=== PATIENT | female | born 1990 | race African-American/Black ===

== ENCOUNTER 2017-07-03 18:28 | Emergency (ER) | payer OTHER ==
--- NOTE | 2017-07-03 18:33 | PDOC ---
Rapid Medical Evaluation Time Seen by Provider: 07/03/17 18:32 Medical Evaluation: Allergies Allergy/AdvReac Type Severity Reaction Status Date / Time No Known Allergies Allergy Verified 11/30/12 14:13 07/03/17 18:32 c/o sore throat and ear pain , was taking ear drops but stopped them because she was feeling better. no PMHX no allergies
[2017-07-03 18:36] VITALS: BP 141/83; PULSE 91; TEMP 98; BMI 32.8
--- NOTE | 2017-07-03 18:52 | PDOC ---
History of Present Illness - General Chief Complaint: Ear Problem Stated Complaint: COLD SYMPTOMS Time Seen by Provider: 07/03/17 18:32 History Source: Patient Exam Limitations: No Limitations - History of Present Illness Initial Comments: 07/03/17 18:52 Best Contact: Pmhx:N/A Pshx: 2013: C section/ 2014: Cholecystectomy Allergies:NKDA LMP: 06.25.2017 26-year-old female presents to the emergency department complaining of sore throat/left ear pain 2 weeks. Patient states she was seen at [facility] 2 weeks ago on [facility] and prescribed Ciprodex. Patient states she used the Ciprodex 3 times but stopped because she felt too lazy to go to her car to get her medicine. Patient states if she does get any medication tonight, she cannot promise that she will take it as prescribed. Otherwise, patient denies fever, chills, headache, dizziness, lightheadedness, facial pains, nasal congestion, rhinorrhea, neck pain/stiffness, back pains, chest pain, shortness of breath, abdominal pains. Patient states her sore throat is described as 4/10 nonradiating soreness. Patient states she is able to eat and drink without any difficulties. Past History - Past Medical History Allergies/Adverse Reactions: Allergies Allergy/AdvReac Type Severity Reaction Status Date / Time No Known Allergies Allergy Verified 07/03/17 18:33 Home Medications: Ambulatory Orders Amoxicillin - [Amoxicillin 500mg Capsule -] 500 mg PO BID #20 capsule 07/03/17 Metformin HCl [Metformin HCl ER] 1,000 mg PO ASDIR 07/03/17 Asthma: Yes Cancer: No Cardiac Disorders: No COPD: No Diabetes: Yes HTN: No Seizures: No Thyroid Disease: No - Immunization History Immunization Up to Date: Yes - Suicide/Smoking/Psychosocial Hx Smoking History: Never smoked Have you smoked in the past 12 months: No Information on smoking cessation initiated: No Hx Alcohol Use: No Drug/Substance Use Hx: No Substance Use Type: None Hx Substance Use Treatment: No Review of Systems - Review of Systems Able to Perform ROS?: Yes Comments:: 07/03/17 19:04 CONSTITUTIONAL: Absent: fever, chills, diaphoresis, generalized weakness, malaise, loss of appetite HEENT: +throat pain, left earache Absent: rhinorrhea, nasal congestion, throat swelling, difficulty swallowing, mouth swelling, eye pain, visual Changes CARDIOVASCULAR: Absent: chest pain, loss of consciousness, palpitations, irregular heart rate, peripheral edema RESPIRATORY: Absent: cough, shortness of breath, dyspnea with exertion, orthopnea, wheezing, stridor, hemoptysis GASTROINTESTINAL: Absent: abdominal pain, abdominal distension, nausea, vomiting, diarrhea, constipation, melena, hematochezia GENITOURINARY: Absent: dysuria, frequency, urgency, hesitancy, hematuria, flank pain, genital pain MUSCULOSKELETAL: Absent: myalgia, arthralgia, joint swelling SKIN: Absent: rash, itching, pallor Is the patient limited Malian proficient: No *Physical Exam - Vital Signs Last Vital Signs Temp Pulse Resp BP Pulse Ox 98.0 F 91 H 18 141/83 98 07/03/17 18:34 07/03/17 18:34 07/03/17 18:34 07/03/17 18:34 07/03/17 18:34 - Physical Exam Comments: 07/03/17 19:05 GENERAL: Well developed, well nourished. Awake and alert. No acute distress. HEENT: +tonsilar +erythematous/exudates Normocephalic, atraumatic. PERRLA, EOMI. No conjunctival pallor. Sclera are non- icteric. Moist mucous membranes. NECK: Supple. Full ROM. No JVD. Carotid pulses 2+ and symmetric, without bruits. No thyromegaly. No lymphadenopathy. CARDIOVASCULAR: Regular rate and rhythm. No murmurs, rubs, or gallops. Distal pulses are 2+ and symmetric. PULMONARY: No evidence of respiratory distress. Lungs clear to auscultation bilaterally. No wheezing, rales or rhonchi. ABDOMINAL: Soft. Non-tender. Non-distended. No rebound or guarding. No organomegaly. Normoactive bowel sounds. MUSCULOSKELETAL Normal range of motion at all joints. No bony deformities or tenderness. No CVA tenderness. EXTREMITIES: No cyanosis. No clubbing. No edema. No calf tenderness. SKIN: Warm and dry. Normal capillary refill. No rashes. No jaundice. Medical Decision Making - Medical Decision Making 07/03/17 19:52 26-year-old female complaining of sore throat and earache. Positive strep test. We'll treat with amoxicillin. *DC/Admit/Observation/Transfer Diagnosis at time of Disposition: Strep pharyngitis - Discharge Dispostion Disposition: HOME Condition at time of disposition: Stable Admit: No - Prescriptions Prescriptions: Amoxicillin - [Amoxicillin 500mg Capsule -] 500 mg PO BID #20 capsule - Referrals Referrals: Evelyn Newman [Primary Care Provider] - - Patient Instructions Printed Discharge Instructions: DI for Strep Throat Additional Instructions: Take Tylenol alternating with Motrin for pain or fever Increase fluids Follow up with your physician within 48 hours Return to the emergency department for severe/persistent or worsening symptoms - Post Discharge Activity
== END 2017-07-03 19:53 | disposition home or self-care (01) ==
LOC: JERFT 18:28
DX: J02.0 Streptococcal pharyngitis (principal); B95.0 Streptococcus, group A, as the cause of diseases classified elsewhere
CPT/HCPCS: 87070; 87077; 87430; 99281-25

== ENCOUNTER 2017-07-16 22:09 | Emergency (ER) | payer OTHER ==
[2017-07-16 22:24] VITALS: BP 123/93; PULSE 78; TEMP 98.1; BMI 32.8
[2017-07-17] MEDS ORDERED: KETOROLAC TROMETHAMINE 60 MG/2 ML VIAL IM ONE (00:49)
[2017-07-17] MEDS ORDERED: CYCLOBENZAPRINE HCL 10 MG TABLET (FP) PO ONE (00:49)
[2017-07-17] MEDS ORDERED: CYCLOBENZAPRINE HCL 10 MG TABLET (FP) ONE (01:21)
[2017-07-17] MEDS ORDERED: KETOROLAC TROMETHAMINE 60 MG/2 ML VIAL ONE (01:21)
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
== END 2017-07-17 04:58 | disposition home or self-care (01) ==
LOC: JER 22:09
PROC: 3E0233Z Introduction of Anti-inflammatory into Muscle, Percutaneous Approach (ICD-10-PCS; principal; 2017-07-16)
DX: S62.394A Other fracture of fourth metacarpal bone, right hand, initial encounter for closed fracture (principal); S16.1XXA Strain of muscle, fascia and tendon at neck level, initial encounter; S39.012A Strain of muscle, fascia and tendon of lower back, initial encounter; V43.52XA Car driver injured in collision with other type car in traffic accident, initial encounter; Y92.414 Local residential or business street as the place of occurrence of the external cause; Y93.89 Activity, other specified; Y99.8 Other external cause status
CPT/HCPCS: 72050-TC-FY; 72100-TC-FY; 73130-TC-RT-FY; 84703; 99281-25

== ENCOUNTER 2017-09-03 15:35 | Emergency (ER) | payer OTHER | END 2017-09-03 17:20 | disposition home or self-care (01) | LOC: JERFT 15:35 | CPT/HCPCS: 87070; 87430; 99281-25 ==

== ENCOUNTER 2018-01-16 18:40 | Emergency (ER) | payer OTHER ==
[2018-01-16 19:24] VITALS: BP 117/68; PULSE 82; TEMP 98.6; BMI 37.2
--- NOTE | 2018-01-16 19:26 | PDOC ---
Rapid Medical Evaluation Chief Complaint: Sore Throat Time Seen by Provider: 01/16/18 19:22 Medical Evaluation: Allergies Allergy/AdvReac Type Severity Reaction Status Date / Time amoxicillin Allergy Verified 09/03/17 15:49 01/16/18 19:22 27 year old female with sore throat x1 days. son diagnosed with strep throat yesterday in the ED PE: patient alert ox3 A: sore throat P: rapid strep patient to the ER for further management of care. 01/16/18 19:24 Discharge Disposition - Diagnosis Pharyngitis Qualifiers: Pharyngitis/tonsillitis etiology: unspecified etiology Qualified Code(s): J02.9 - Acute pharyngitis, unspecified - Referrals Referrals: Evelyn Newman [Primary Care Provider] - - Patient Instructions - Post Discharge Activity
--- NOTE | 2018-01-16 19:37 | PDOC ---
History of Present Illness - General Chief Complaint: Sore Throat Stated Complaint: Sore Throat Time Seen by Provider: 01/16/18 19:22 History Source: Patient Exam Limitations: Clinical Condition - History of Present Illness Initial Comments: 01/16/18 19:32 Patient with history of diabetes on meds present with complain of sore throat since yesterday night. Patient reported pain to swallow. Patient reports sudden test positive strep throat. Denies any other symptoms Timing/Duration: 24 hours Past History - Past Medical History Allergies/Adverse Reactions: Allergies Allergy/AdvReac Type Severity Reaction Status Date / Time amoxicillin Allergy Verified 01/16/18 19:24 Home Medications: Ambulatory Orders Metformin HCl [Metformin HCl ER] 1,000 mg PO ASDIR 07/03/17 Azithromycin [Zithromax 250mg Tablets -] 250 mg PO UTDICT #6 tab 01/16/18 Asthma: Yes Cancer: No Cardiac Disorders: No COPD: No Diabetes: Yes HTN: No Seizures: No Thyroid Disease: No - Surgical History Cholecystectomy: Yes - Immunization History Immunization Up to Date: Yes - Suicide/Smoking/Psychosocial Hx Smoking History: Never smoked Have you smoked in the past 12 months: No If you are a former smoker, when did you quit?: 1.5 years Information on smoking cessation initiated: No Hx Alcohol Use: No Drug/Substance Use Hx: No Substance Use Type: None Hx Substance Use Treatment: No Review of Systems - Review of Systems Able to Perform ROS?: Yes Is the patient limited [place]ese proficient: No Constitutional: No: Chills, Fever HEENTM: Yes: Throat Pain, Difficulty Swallowing (pain with swallow). No: Eye Pain, Blurred Vision, Tearing, Recent change in vision, Double Vision, Cataracts , Ear Pain, Ocular Prothesis, Ear Discharge, Nose Pain, Nose Congestion, Tinnitus, Nose Bleeding, Hearing Loss, Throat Swelling, Mouth Pain, Dental Problems, Mouth Swelling, Other Respiratory: No: Cough, Orthopnea, Shortness of Breath, SOB with Exertion, SOB at Rest, Stridor, Wheezing, Productive cough, Hemoptysis, Other Cardiac (ROS): No: Chest Pain, Edema, Irregular Heart Rate, Lightheadedness, Palpitations, Syncope, Chest Tightness, Other ABD/GI: No: Abdominal Distended, Abd. Pain w/ defecation, Blood Streaked Bowels , Constipated, Diarrhea, Difficulty Swallowing, Nausea, Poor Appetite, Poor Fluid Intake, Rectal Bleeding, Vomiting, Indigestion, Abdominal cramping, Tarry Stools, Other All Other Systems: Reviewed and Negative *Physical Exam - Vital Signs Last Vital Signs Temp Pulse Resp BP Pulse Ox 98.6 F 82 16 117/68 100 01/16/18 19:22 01/16/18 19:22 01/16/18 19:22 01/16/18 19:22 01/16/18 19:22 - Physical Exam Comments: 01/16/18 19:34 GENERAL: Well developed, well nourished. Awake and alert. No acute distress. HEENT: Mild pharyngeal erythema. Uvula midline. Normocephalic, atraumatic. PERRLA, EOMI. No conjunctival pallor. Sclera are non-icteric. Moist mucous membranes. NECK: Supple. Full ROM. CARDIOVASCULAR: Regular rate and rhythm. No murmurs, rubs, or gallops. Distal pulses are 2+ and symmetric. PULMONARY: No evidence of respiratory distress. Lungs clear to auscultation bilaterally. No wheezing, rales or rhonchi. ABDOMINAL: Soft. Non-tender. Non-distended. No rebound or guarding. No organomegaly. Normoactive bowel sounds. MUSCULOSKELETAL Normal range of motion at all joints. EXTREMITIES: No cyanosis. No clubbing. No edema. No calf tenderness. SKIN: Warm and dry. Normal capillary refill. No rashes. No jaundice. NEUROLOGICAL: Alert, awake, appropriate. Gait is normal without ataxia. PSYCHIATRIC: Cooperative. Good eye contact. Appropriate mood General Appearance: Yes: Nourished, Appropriately Dressed. No: Apparent Distress Medical Decision Making - Medical Decision Making 01/16/18 19:35 Patient with history of diabetes on meds present with complain of sore throat since yesterday which child testing positive for strep throat yesterday. Patient denies fever or any other symptoms. Clinical exams significant for mild pharyngeal erythema. Rapid strep and throat culture ordered. Patient will be treated on antibiotics given child with positive strep. 01/16/18 19:54 rapid strep negative *DC/Admit/Observation/Transfer Diagnosis at time of Disposition: Pharyngitis Qualifiers: Pharyngitis/tonsillitis etiology: unspecified etiology Qualified Code(s): J02.9 - Acute pharyngitis, unspecified - Discharge Dispostion Disposition: HOME Condition at time of disposition: Stable Decision to Admit order: No - Prescriptions Prescriptions: Azithromycin [Zithromax 250mg Tablets -] 250 mg PO UTDICT #6 tab - Referrals Referrals: Evelyn Newman [Primary Care Provider] - Elijah Marquez MD [Staff Physician] - - Patient Instructions Printed Discharge Instructions: Strep Throat Additional Instructions: Take medication as prescribed. Increase fluid intake. Follow-up with ENT if symptoms persist for more than 5 days - Post Discharge Activity
[2018-01-16] MEDS ORDERED: ACETAMINOPHEN 325 MG TABLET (FP) PO ONE (19:39)
[2018-01-16] MEDS ORDERED: ACETAMINOPHEN 325 MG TABLET (FP) ONE (19:41)
== END 2018-01-16 19:58 | disposition home or self-care (01) ==
LOC: JERFT 18:40
DX: J02.9 Acute pharyngitis, unspecified (principal)
CPT/HCPCS: 87070; 87430; 99281-25

== ENCOUNTER 2018-08-16 15:54 | Emergency (ER) | payer OTHER ==
[2018-08-16 16:16] VITALS: BP 134/77; PULSE 99; TEMP 98.6; BMI 37.5
--- NOTE | 2018-08-16 16:16 | PDOC ---
Rapid Medical Evaluation Chief Complaint: Headache Time Seen by Provider: 08/16/18 16:14 Medical Evaluation: Allergies Allergy/AdvReac Type Severity Reaction Status Date / Time amoxicillin Allergy Verified 01/16/18 19:24 08/16/18 16:14 I have performed a brief in-person evaluation of this patient. The patient presents with a chief complaint of: 15weeks with headache took Tylenol with no improvement. Denies blurry vision, change in vision, dizziness, N/V. Pertinent physical exam findings: A&O x 3 in NAD. ambulating with normal gait I have ordered the following: nothing The patient will proceed to the ED for further evaluation. Discharge Disposition - Diagnosis Headache Qualifiers: Headache type: unspecified Headache chronicity pattern: acute headache Intractability: not intractable Qualified Code(s): R51 - Headache - Discharge Dispostion Condition at time of disposition: Stable - Referrals - Patient Instructions - Post Discharge Activity
[2018-08-16 16:51] LABS: EPI CELLS 6.7 /HPF (0-5/HPF); PH,URINE 8.5 (5.0-8.0); URINE APPEARANCE CLOUDY; URINE BACTERIA 226.3 /hpf (NEGATIVE); URINE BILIRUBIN NEGATIVE (NEGATIVE); URINE CASTS 0 /hpf (0-8); URINE COLOR YELLOW; URINE GLUCOSE (UA) 1+ (NEGATIVE); URINE KETONE NEGATIVE (NEGATIVE); URINE LEUK ESTERASE 1+ (NEGATIVE); URINE NITRITE NEGATIVE (NEGATIVE); URINE PROTEIN NEGATIVE (NEGATIVE); URINE RBC 6 /hpf (0-4); URINE UROBILINOGEN 0.2 mg/dL (0.2-1.0); URINE WBC 3 /hpf (0-5)
[2018-08-16] MEDS ORDERED: SODIUM CHLORIDE 1,000 ML IV STA (17:30)
--- NOTE | 2018-08-16 17:30 | PDOC ---
History of Present Illness - General Chief Complaint: Headache Stated Complaint: HEADACHE 15WKS PRG Time Seen by Provider: 08/16/18 16:14 History Source: Patient Exam Limitations: No Limitations Past History - Travel Traveled outside of the country in the last 30 days: No Close contact w/someone who was outside of country & ill: No - Past Medical History Allergies/Adverse Reactions: Allergies Allergy/AdvReac Type Severity Reaction Status Date / Time amoxicillin Allergy Verified 01/16/18 19:24 Home Medications: Ambulatory Orders metFORMIN HCL [Metformin HCl ER] 1,000 mg PO ASDIR 07/03/17 Azithromycin [Zithromax 250mg Tablets -] 250 mg PO UTDICT #6 tab 01/16/18 Acetaminophen [Tylenol -] 650 mg PO Q4H #30 tablet 08/16/18 Metoclopramide HCl [Reglan -] 10 mg PO TID #21 tablet 08/16/18 Asthma: Yes Cancer: No Cardiac Disorders: No COPD: No Diabetes: Yes HTN: No Seizures: No Thyroid Disease: No - Surgical History Cholecystectomy: Yes - Immunization History Immunization Up to Date: Yes - Suicide/Smoking/Psychosocial Hx Smoking History: Never smoked Have you smoked in the past 12 months: No If you are a former smoker, when did you quit?: 1.5 years Information on smoking cessation initiated: No Hx Alcohol Use: No Drug/Substance Use Hx: No Substance Use Type: None Hx Substance Use Treatment: No Review of Systems - Review of Systems Able to Perform ROS?: Yes Comments:: 08/16/18 18:13 CONSTITUTIONAL: Absent: fever, chills, diaphoresis, generalized weakness, malaise, loss of appetite HEENT: Absent: rhinorrhea, nasal congestion, throat pain, throat swelling, difficulty swallowing, mouth swelling, ear pain, eye pain, visual Changes GASTROINTESTINAL: Absent: abdominal pain, abdominal distension, nausea, vomiting, diarrhea, constipation, melena, hematochezia GENITOURINARY: Absent: dysuria, frequency, urgency, hesitancy, hematuria, flank pain, genital pain MUSCULOSKELETAL: Absent: myalgia, arthralgia, joint swelling SKIN: Absent: rash, itching, pallor NEUROLOGIC: Present: headache Absent: focal weakness or paresthesias, dizziness, unsteady gait, seizure, mental status changes, bladder or bowel incontinence PSYCHIATRIC: Absent: anxiety, depression, suicidal or homicidal ideation, hallucinations. Is the patient limited Faroese proficient: No *Physical Exam - Vital Signs Last Vital Signs Temp Pulse Resp BP Pulse Ox 98.6 F 99 H 18 134/77 99 08/16/18 16:13 08/16/18 16:13 08/16/18 16:13 08/16/18 16:13 08/16/18 16:13 - Physical Exam Comments: 08/16/18 18:14 GENERAL: Well developed, well nourished. Awake and alert. No acute distress. HEENT: Normocephalic, atraumatic. PERRLA, EOMI. No conjunctival pallor. Sclera are non- icteric. Moist mucous membranes. Oropharynx is clear. NECK: Supple. Full ROM. No JVD. Carotid pulses 2+ and symmetric, without bruits. No thyromegaly. No lymphadenopathy. EXTREMITIES: No cyanosis. No clubbing. No edema. No calf tenderness. SKIN: Warm and dry. Normal capillary refill. No rashes. No jaundice. NEUROLOGICAL: Alert, awake, appropriate. Cranial nerves 2-12 intact. No deficits to light touch and temperature in face, upper extremities and lower extremities. No motor deficits in the in face, upper extremities and lower extremities. Normoreflexic in the upper and lower extremities. Normal speech. Toes are down- going bilaterally. Gait is normal without ataxia. PSYCHIATRIC: Cooperative. Good eye contact. Appropriate mood and affect. ED Treatment Course - ADDITIONAL ORDERS Additional order review: Laboratory Results 08/16/18 16:35 Urine Color Yellow Urine Appearance Cloudy Urine pH 8.5 H D Ur Specific M[place] 1.016 Urine Protein Negative Urine Glucose (UA) 1+ H Urine Ketones Negative Urine Blood Negative Urine Nitrite Negative Urine Bilirubin Negative Urine Urobilinogen 0.2 Ur Leukocyte Esterase 1+ H Urine WBC (Auto) 3 Urine RBC (Auto) 6 Urine Casts (Auto) 0 U Epithel Cells (Auto) 6.7 Urine Bacteria (Auto) 226.3 Medical Decision Making - Medical Decision Making 08/16/18 18:15 HPI: The patient is a 27-year-old female currently 15 weeks , who presents to the ER for headache for one week. Patient states she been taking Tylenol home with some relief of her symptoms. She states that the headache is all over and got worse gradually. Denies fevers, chills, neck pain, lightheadedness, dizziness, fall, changes in gait, and vaginal bleeding. A/P: Headache Patient is neurologically intact with no focal deficits. Given patient has tried Tylenol we'll add Reglan, and Benadryl. Last dose of Tylenol was at 10 AM per patient. We will also give IV Tylenol Reevaluate 08/16/18 19:15 Pt reports headache is improved after reglan and benadryl. No protienuria, no edema DC home with supportive therapy Pt to f/u with OB I discussed the physical exam findings, ancillary test results and final diagnoses with the patient. I answered all of the patient's questions. The patient was satisfied with the care received and felt comfortable with the discharge plan and treatment plan. The Patient agrees to follow up with the primary care physician/specialist within 24-72 hours. Return precautions were given. *DC/Admit/Observation/Transfer Diagnosis at time of Disposition: Headache Qualifiers: Headache type: unspecified Headache chronicity pattern: acute headache Intractability: not intractable Qualified Code(s): R51 - Headache - Discharge Dispostion Condition at time of disposition: Stable - Referrals Referrals: Abdulkadir Guerra MD [Staff Physician] - - Patient Instructions Printed Discharge Instructions: DI for Headache Additional Instructions: You were evaluated for your headache Take the Benadryl and Tylenol as directed for the headache Follow up with your ANTHROPOLOGIST PHYSICAL this week Drink plenty of fluids Return to the ED for any worsening headache, dizziness, swelling of the feet, or if you have any changes in your symptoms Te evaluaron por tu dolor de sánchez [place] el Benadryl y el Tylenol segn las indicaciones para el dolor de sánchez. Garfield un seguimiento con rader obstetra / gineclogo esta semana. Beber mucho lquido Regrese a la cynthia de emergencias por cualquier dolor de sánchez, mareo, hinchazn de los pies o si tiene algn cambio en mendy sntomas. - Post Discharge Activity Forms/Work/School Notes: Back to Work
[2018-08-16] MEDS ORDERED: METOCLOPRAMIDE HCL INJECTION 10 MG/2 ML VIAL IVPB ONE (17:31)
[2018-08-16] MEDS ORDERED: ACETAMINOPHEN 1000 MG/100 ML VIAL (NON FORMULARY) IVPB ONE (17:31)
[2018-08-16] MEDS ORDERED: METOCLOPRAMIDE HCL INJECTION 10 MG/2 ML VIAL ONE (17:35)
[2018-08-16] MEDS ORDERED: ACETAMINOPHEN INJECTION 100 ML IVPB ONE (17:35)
== END 2018-08-16 19:41 | disposition home or self-care (01) ==
LOC: JERFT 15:54
PROC: 3E0337Z Introduction of Electrolytic and Water Balance Substance into Peripheral Vein, Percutaneous Approach (ICD-10-PCS; principal; 2018-08-16)
PROC: 3E033NZ Introduction of Analgesics, Hypnotics, Sedatives into Peripheral Vein, Percutaneous Approach (ICD-10-PCS; 2018-08-16)
PROC: 3E033GC Introduction of Other Therapeutic Substance into Peripheral Vein, Percutaneous Approach (ICD-10-PCS; 2018-08-16)
PROC: 3E033GC Introduction of Other Therapeutic Substance into Peripheral Vein, Percutaneous Approach (ICD-10-PCS; 2018-08-16)
DX: O26.892 Other specified pregnancy related conditions, second trimester (principal); R51 Headache; O24.912 Unspecified diabetes mellitus in pregnancy, second trimester; Z3A.15 15 weeks gestation of pregnancy; Z79.84 Long term (current) use of oral hypoglycemic drugs
CPT/HCPCS: 81003; 87086; 99281-25; J0131; J7030

== ENCOUNTER 2018-12-21 03:47 | Emergency (ER) | payer OTHER ==
[2018-12-21 03:57] VITALS: BMI 41.4
[2018-12-21] MEDS ORDERED: LIDOCAINE VISCOUS 2% ORAL/TOP 20 ML UNIT-DOSE CUP MM ONE (04:29)
[2018-12-21] MEDS ORDERED: MAG HYDROX/AL HYDROX/SIMETH 30 ML UNIT-DOSE CUP PO ONE (04:29)
[2018-12-21] MEDS ORDERED: RANITIDINE HCL 150 MG TABLET (FP) PO ONE (04:29)
[2018-12-21] MEDS ORDERED: LIDOCAINE VISCOUS 2% ORAL/TOP 20 ML UNIT-DOSE CUP ONE (04:43)
[2018-12-21] MEDS ORDERED: RANITIDINE HCL 150 MG TABLET (FP) ONE (04:44)
[2018-12-21] MEDS ORDERED: MAG HYDROX/AL HYDROX/SIMETH 30 ML UNIT-DOSE CUP ONE (04:44)
--- NOTE | 2018-12-21 04:56 | PDOC ---
History of Present Illness - General Chief Complaint: Chest Pain Stated Complaint: CHEST PAIN,33 WEEKS ,ABDOMINAL PAIN Time Seen by Provider: 12/21/18 04:06 - History of Present Illness Initial Comments: 12/21/18 04:58 28y/o F 33 weeks ,hx of asthma,cholecystectomy and gestational diabetes, presents to the ED with 1 week of epigastric pain. Pt. presents to ED because pain now radiates to chest x1 day. She describes the pain as sharp intermittent pain which last approx 30 minutes each episode x5 (approx) a day. Pain feels similiar to episodes of acid reflux she has experienced in the past. Pain is exacerbated by lying down and relieved with sitting up. She endorses nausea with no vomiting. She has been able to eat and stay hydrated. She denies any fevers, chills,diarrhea, bloody stools, dysuria, hematuria, vaginal bleeding previous hx of clots, recent travel, unilateral leg swelling or hx of cancer. 12/21/18 05:02 12/21/18 05:03 Past History - Past Medical History Allergies/Adverse Reactions: Allergies Allergy/AdvReac Type Severity Reaction Status Date / Time amoxicillin Allergy Intermediate Rash Verified 12/21/18 03:55 Home Medications: Ambulatory Orders Albuterol Sulfate Inhaler - [Ventolin Hfa Inhaler -] 1 - 2 inh PO Q4H PRN Vitamins (Sjr) - 1 tab PO DAILY 12/18/18 Famotidine [Pepcid] 20 mg PO BID 30 Days #60 tablet 12/21/18 Asthma: Yes Cancer: No Cardiac Disorders: No COPD: No Diabetes: Yes HTN: No Seizures: No Thyroid Disease: No - Surgical History Cholecystectomy: Yes - Immunization History Immunization Up to Date: Yes - Suicide/Smoking/Psychosocial Hx Smoking History: Never smoked Have you smoked in the past 12 months: No If you are a former smoker, when did you quit?: 1.5 years Information on smoking cessation initiated: No Hx Alcohol Use: No Drug/Substance Use Hx: No Substance Use Type: None Hx Substance Use Treatment: No Review of Systems - Review of Systems Constitutional: No: Fever, Weakness HEENTM: No: Eye Pain, Blurred Vision Respiratory: No: Cough, Shortness of Breath Cardiac (ROS): Yes: Symptoms Reported ABD/GI: Yes: Symptoms Reported : No: Burning, Dysuria, Discharge Musculoskeletal: Yes: Back Pain Integumentary: No: Pallor, Rash Neurological: No: Headache *Physical Exam - Vital Signs Last Vital Signs Temp Pulse Resp BP Pulse Ox 98.6 F 86 18 111/76 99 12/21/18 03:55 12/21/18 03:55 12/21/18 03:55 12/21/18 03:55 12/21/18 03:55 - Physical Exam General Appearance: Yes: Nourished, Appropriately Dressed. No: Apparent Distress HEENT: positive: Normal Voice. negative: Scleral Icterus (R), Scleral Icterus ( L) Neck: positive: Trachea midline, Supple. negative: Tender Respiratory/Chest: positive: Lungs Clear, Normal Breath Sounds. negative: Chest Tender, Respiratory Distress, Accessory Muscle Use, Labored Respiration, Wheezing Cardiovascular: positive: Regular Rhythm, Regular Rate, S1, S2. negative: JVD Vascular Pulses: Dorsalis-Pedis (R): 2+, Doralis-Pedis (L): 2+ Gastrointestinal/Abdominal: positive: Normal Bowel Sounds, Other (gravid uterus. epigstric tenderness no guarding ) Musculoskeletal: positive: Normal Inspection. negative: CVA Tenderness Extremity: positive: Normal Capillary Refill, Normal Inspection, Normal Range of Motion Integumentary: positive: Normal Color, Dry, Warm. negative: Diaphoresis Neurologic: positive: Fully Oriented, Alert, Normal Mood/Affect, Normal Response Medical Decision Making - Medical Decision Making 12/21/18 04:57 28y/o F 33 weeks ,hx of asthma,cholecystectomy and gestational diabetes, presents to the ED with 1 week of epigastric pain. EKG : normal sinus rhythm, voltage criteria for left ventricular hypertrophy no st elevations was at the hospital 3 days ago labs done then cbc, coags cmp, urine . no findings suggestive of other abdominal pathology - only PE risk factor at this time. -No PE risk factors (malignancy. long distance travel, prior clot, unilateral leg swelling Meds: viscous lidocaine (20ml) Maalox 30ml PO Ranitidine 150mg po once Reassess, if improved discharge with pepcid description 12/21/18 05:03 12/21/18 05:13 *DC/Admit/Observation/Transfer Diagnosis at time of Disposition: Acid reflux - Prescriptions Prescriptions: Famotidine [Pepcid] 20 mg PO BID 30 Days #60 tablet - Referrals - Patient Instructions Printed Discharge Instructions: Heartburn -- Overview Additional Instructions: You were seen in the ER for abdominal pain and accompanying chest pain. You were given medications for acid reflux Avoid foods and drinks that make your symptoms worse, such as: Caffeine or alcoholic drinks. Chocolate. Peppermint or mint flavorings. Garlic and onions. Spicy foods. [place] fruits, such as oranges, bennie, or limes. Tomato-based foods such as sauce, chili, salsa, and pizza. Fried and fatty foods. Avoid lying down for the 3 hours prior to your bedtime or prior to taking a nap. Eat small, frequent meals instead of large meals. Wear loose-fitting clothing. Do not wear anything tight around your waist that causes pressure on your stomach. Raise the head of your bed 6 to 8 inches with wood blocks to help you sleep. Extra pillows will not help. Only take [id number] or prescription medicines for pain, discomfort, or fever as directed by your caregiver. Do not take aspirin, ibuprofen, or other nonsteroidal anti-inflammatory drugs (NSAIDs) . SEEK IMMEDIATE MEDICAL CARE IF: You have pain in your arms, neck, jaw, teeth, or back. Your pain increases or changes in intensity or duration. You develop nausea, vomiting, or sweating (diaphoresis). You develop shortness of breath, or you faint. Your vomit is green, yellow, black, or looks like coffee grounds or blood. Your stool is red, bloody, or black. These symptoms could be signs of other problems, such as heart disease, gastric bleeding, or esophageal bleeding. Follow up with your primary care provider and your slab lifting engineer. - Post Discharge Activity
--- NOTE | 2018-12-21 05:34 | PDOC ---
Attending Attestation - Resident Resident Name: Jeff Contreras - ED Attending Attestation I have performed the following: I have examined & evaluated the patient, The case was reviewed & discussed with the resident, I agree w/resident's findings & plan, Exceptions are as noted - HPI HPI: 12/21/18 05:50 28F , 33wk preg, pmh asthma, gestational DM, s/p marc here with 1 week of burning epigastric px radiating up towards chest. A/w nausea, no vomiting. Tolerating po w/o issue, normal appetite. No other complaints. - Physicial Exam PE: 12/21/18 05:52 Agree with exam as documented by resident - Medical Decision Making 12/21/18 05:52 consider GERD, acs, pe unlikely Normotensive symptomatic tx re-eval symptoms improved, will dc to L&D for monitoring
[2018-12-21 06:39] VITALS: BP 136/75; PULSE 91; TEMP 98.1
--- NOTE | 2018-12-21 11:36 | EKG ---
Test Reason : Blood Pressure : / mmHG Vent. Rate : 080 BPM Atrial Rate : 080 BPM P-R Int : 178 ms QRS Dur : 084 ms QT Int : 414 ms P-R-T Axes : 058 -17 019 degrees QTc Int : 477 ms NORMAL SINUS RHYTHM VOLTAGE CRITERIA FOR LEFT VENTRICULAR HYPERTROPHY WHEN COMPARED WITH ECG OF 05-DEC-2012 09:03, NO SIGNIFICANT CHANGE WAS FOUND Confirmed by ANAIS MAN MD ([id number]) on 12/21/2018 11:35:43 AM Referred By: Confirmed By:ANAIS MAN MD
== END 2018-12-21 10:10 | disposition home or self-care (01) ==
LOC: JER 03:47
DX: O26.893 Other specified pregnancy related conditions, third trimester (principal); K21.9 Gastro-esophageal reflux disease without esophagitis; Z3A.33 33 weeks gestation of pregnancy; J45.909 Unspecified asthma, uncomplicated; O24.419 Gestational diabetes mellitus in pregnancy, unspecified control
CPT/HCPCS: 82962; 93005; 93010; 99283-25

== ENCOUNTER 2019-01-23 06:05 | Inpatient (IN) | payer OTHER ==
[2019-01-23] MEDS ORDERED: ELECTROLYTE-148 SOLN 500 ML IV ONE (06:20)
[2019-01-23] MEDS ORDERED: ELECTROLYTE-148 SOLN 1,000 ML IV SCH ×2 (06:50→07:30)
[2019-01-23 06:54] VITALS: BMI 40.5
[2019-01-23] MEDS ORDERED: PHENYLEPHRINE HCL 10 MG/1 ML SINGLE DOSE VIAL ONE (07:25)
[2019-01-23] MEDS ORDERED: morphine SULFATE/PF 0.5 MG/ML (2cc Syringe - QUVA) ONE (07:28)
[2019-01-23] MEDS ORDERED: CITRIC ACID/SODIUM CITRATE 30 ML UNIT-DOSE CUP PO ONE (07:30)
[2019-01-23] MEDS ORDERED: ELECTROLYTE-148 SOLN 1,000 ML IV ONE (07:30)
--- NOTE | 2019-01-23 08:20 | HP ---
Past Medical History - Primary Care Physician PCP:: Sandra Ugrate - Admission Chief Complaint: 28 yrs , 38 weeks, previous c/section, with known IDDM type 2 diabetes , requests repeat c/section History of Present Illness: pnc at 1, [facility] transfer from [facility] at 26 weeks gestation wt gain 30 lbs panel: O pos , , Hbsag neg, Hep C nr, Hiv nr, Rpr nr,Rubella immune, Varicella immune , gc/ct neg ,sickle neg Quantiferon - indeterminate , , Chest Xray 12/19/2018 compare with 2013 xray, prominent markings, may be due to base line urine protein/cr ratio 0.18 base line 24 hr urine Protein & Cr clearance (243)was wnl urine protein /cr ration 01/08/19 36 weeks cultures gbs neg /gc/ct neg . Hiv neg . h/o BV pos rx with Metrogel gel x5 days , h/h 12.9/33.7, plt 185,HgbA1c 7.0 01/22/19 urine 4+proteinuria random urine protein/cr ratio : 1.74 pt had anatomy sono done wnl 12/2018 ECHO wnl pt had serial sonogram done by [facility] , sono were reviewed she was monitored by BPP q 1 week NST since 32 weeks , weekly & twice a week by 36 weeks sono from 01/09/19 vx, post placenta, anna 16.1, pt was non compliant with diet & insulin coverage ,& bgm logs She started pregn with( Lispro 16 iu Humlin 12 iu in AM) & (12 iu Lispro 12 iu humlin HS ) BGM during pregn, Fasting 100-130 range , PP 99--160 , >200 sometimes She was following diabetes management with Manugrapher Dr Haas she was switched to Basaglar 50 iu HS, Ademelog 25 iu before meals tid on sliding scale History Source: Patient, Medical Record Limitations to Obtaining History: No Limitations - Past Medical History 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 No: Migraine, Seizure Cardiovascular: Yes: HTN (h/o preclempsia 2012 pregn, HTN). No: Murmur Pulmonary: Yes: Asthma (rx inhaler) Gastrointestinal: No: Gastritis, GERD Hepatobiliary: Yes: Choledocholithiasis (h/o chlecystectomy). No: Hepatitis B, Hepatitis C Renal/: No: UTI Reproductive: Yes: Other (h/o BV pos) ...: 5 ...Para: 1 (Primary LFTC/S 11/30/12 37.3 weeks , severe preclempsia ) ...Term: 1 ...: 0 ...Spon : 2 ...Induced : 1 ...LMP: 05/01/18 ... Weeks Gestation by Dates: 38.1 ...EDC by Dates: 02/05/19 ...EDC by Sono: 02/05/19 Infectious Disease: No: AIDS, HIV, STD's, Tuberculosis Psych: No: Addictions, Anxiety, Bipolar, Depression, Panic, Psychosis, Schizophrenia, Other Endocrine: Yes: Diabetes Mellitus (started with GDM on diet control in 2012 currently IDDM) - Past Surgical History Past Surgical History: Yes: Cholecystectomy, (2012) Hx Myomectomy: No Hx Transabdominal Cerclage: No - Smoking History Smoking history: Never smoked Have you smoked in the past 12 months: No If you are a former smoker, when did you quit?: 1.5 years - Alcohol/Substance Use Hx Alcohol Use: No History of Substance Use: reports: None - Social History History of Recent Travel: No Home Medications - Allergies Allergies/Adverse Reactions: Allergies Allergy/AdvReac Type Severity Reaction Status Date / Time amoxicillin Allergy Intermediate Rash Verified 01/23/19 07:01 - Home Medications Home Medications: Ambulatory Orders Albuterol Sulfate Inhaler - [Ventolin Hfa Inhaler -] 1 - 2 inh PO Q4H PRN Vitamins (Sjr) - 1 tab PO DAILY 12/18/18 Aspirin [ASA -] 81 mg PO DAILY 12/21/18 Insulin Glargine,Hum.rec.anlog [Basaglalina Mehtapen U-100] 34 unit SQ HS 12/21/18 Insulin Lispro [Admelog Solostar] 25 unit SQ HS 12/21/18 Physical Exam - Maternity Vital Signs: Selected Entries 01/23/19 06:17 Weight 236 lb BP 126/92 pulse 92 Temp 98.5 Constitutional: Yes: Well Nourished, Obese Eyes: Yes: WNL HENT: Yes: WNL, Normocephalic Neck: Yes: WNL Cardiovascular: Yes: WNL, Regular Rate and Rhythm Lungs: Clear to auscultation, Other (no wheezing) Breast(s): Yes: WNL - Abdominal Exam/OB Fundal Height: 40 Number of Fetuses: Single Presentation: Vertex Contractions: No Monitor Mode: External Heart Rate (range): 150 Heart Rate Location: Midline Category: I Accelerations: Uniform Decelerations: None - Vaginal Exam/OB Vaginal Bleediing: No Dilatation (cm): close Effacement (%): unefface Amniotic Membrane Status: Intact Presentation: Vertex/Position Station: -3 - Physical Exam Musculoskeletal: Yes: WNL Extremities: Yes: WNL. No: Calf Tenderness Edema: Yes Edema: LLE: 1+, RLE: 1+ Integumentary: Yes: Incision (pfannesteil scar) Deep Tendon Reflex Grade: Normal +2 ...Motor Strength: WNL Psychiatric: Yes: WNL, Alert, Oriented - Labs Lab Results: Laboratory Tests 05/17/15 12/18/18 01/22/19 23:50 16:55 17:02 WBC RBC Hgb Hct MCV MCH Plt Count PT with INR INR Sodium 139 Potassium 4.1 Chloride 104 Carbon Dioxide 25 Anion Gap 10 BUN 7.8 Creatinine 0.6 Creat Clearance w eGFR > 60 Est GFR (CKD-EPI)AfAm 142.76 Est GFR (CKD-EPI)NonAf 123.17 POC Glucometer Random Glucose 114 H Hemoglobin A1c % 6.8 H Uric Acid 4.7 Calcium 9.5 Total Bilirubin 0.3 AST 22 ALT 26 Total Protein 6.9 Albumin 2.7 L Urine pH Ur Specific [place] Urine Protein Urine Ketones Urine Blood Urine Nitrite Urine Bilirubin Urine Urobilinogen Ur Leukocyte Esterase Urine WBC (Auto) Urine RBC (Auto) Urine Casts (Auto) U Random Total Protein Urine Creatinine Protein/Creatinin Ratio 01/22/19 01/22/19 01/22/19 17:02 17:05 17:05 WBC 8.3 RBC 4.51 Hgb 13.0 Hct 39.0 D MCV 86.6 MCH 28.7 Plt Count 162 PT with INR 11.10 INR 0.94 Sodium Potassium Chloride Carbon Dioxide Anion Gap BUN Creatinine Creat Clearance w eGFR Est GFR (CKD-EPI)AfAm Est GFR (CKD-EPI)NonAf POC Glucometer Random Glucose Hemoglobin A1c % Uric Acid Calcium Total Bilirubin AST ALT Total Protein Albumin Urine pH Ur Specific [place] Urine Protein Urine Ketones Urine Blood Urine Nitrite Urine Bilirubin Urine Urobilinogen Ur Leukocyte Esterase Urine WBC (Auto) Urine RBC (Auto) Urine Casts (Auto) U Random Total Protein 426.5 H Urine Creatinine 245.0 Protein/Creatinin Ratio 1.740 01/22/19 01/23/19 17:05 06:45 WBC RBC Hgb Hct MCV MCH Plt Count PT with INR INR Sodium Potassium Chloride Carbon Dioxide Anion Gap BUN Creatinine Creat Clearance w eGFR Est GFR (CKD-EPI)AfAm Est GFR (CKD-EPI)NonAf POC Glucometer 133 Random Glucose Hemoglobin A1c % Uric Acid Calcium Total Bilirubin AST ALT Total Protein Albumin Urine pH 6.0 Ur Specific [place] 1.027 Urine Protein 3+ H Urine Ketones 1+ H Urine Blood Negative Urine Nitrite Negative Urine Bilirubin Negative Urine Urobilinogen 1.0 Ur Leukocyte Esterase Negative Urine WBC (Auto) 4 Urine RBC (Auto) 3 Urine Casts (Auto) 14 U Random Total Protein Urine Creatinine Protein/Creatinin Ratio Problem List - Problems (1) with 38 completed weeks gestation Code(s): Z3A.38 - 38 WEEKS GESTATION OF (2) Previous section Code(s): Z98.891 - HISTORY OF UTERINE SCAR FROM PREVIOUS SURGERY (3) Diabetes mellitus, insulin dependent (IDDM), uncontrolled Code(s): E11.65 - TYPE 2 DIABETES MELLITUS WITH HYPERGLYCEMIA; Z79.4 - PENITENTIARY (CURRENT) USE OF INSULIN (4) Morbid obesity with BMI of 40.0-44.9, adult Code(s): E66.01 - MORBID (SEVERE) OBESITY DUE TO EXCESS CALORIES; Z68.41 - BODY MASS INDEX (BMI) 40.0-44.9, ADULT Assessment/Plan 28 yrs , 38.1 weeks, IDDM since 2012 , bgm not well controlled during pregn , proteinuria 425 mg ,, previous c/s Plan : Repeat LFtC/Section BGM monitoring
[2019-01-23] MEDS ORDERED: morphine SULFATE/PF 0.5 MG/ML (2cc Syringe - QUVA) EP ONE (08:35)
[2019-01-23] MEDS ORDERED: KETOROLAC TROMETHAMINE 30 MG/1 ML VIAL ONE (08:55)
[2019-01-23] MEDS ORDERED: OXYTOCIN 10 UNITS/ML VIAL ONE ×2 (08:55→09:04)
[2019-01-23] MEDS ORDERED: ceFAZolin SODIUM 1 GM VIAL ONE (08:55)
[2019-01-23] MEDS ORDERED: METHYLERGONOVINE MALEATE 0.2 MG/1 ML AMP IM PRN (10:03)
[2019-01-23] MEDS ORDERED: OXYTOCIN 20 UNITS in 0.9% NS 20 UNIT/1,000 ML INFUS.BAG IV SCH (10:15)
[2019-01-23] MEDS ORDERED: ONDANSETRON 4 MG/2 ML VIAL IVPUSH PRN ×2 (10:17)
[2019-01-23] MEDS ORDERED: ACETAMINOPHEN 1000 MG/100 ML VIAL (NON FORMULARY) IVPB ONE (10:19)
[2019-01-23] MEDS ORDERED: LACTATED RINGERS SOLUTION 1,000 ML IV SCH (10:30)
[2019-01-23] MEDS ORDERED: INSULIN SLIDING SCALE (NOVOLOG) 1 VIAL SQ SCH (11:00)
[2019-01-23] MEDS ORDERED: IBUPROFEN 800 MG/8 ML IJ IVPB ONE (11:08)
[2019-01-23] MEDS: IBUPROFEN 800 MG/8 ML IJ IVPB PRN ×2 (11:15→19:40)
--- NOTE | 2019-01-23 11:23 | PN ---
Delivery - Delivery Section: Repeat, Low Flap Transverse (& Lysis of extensive uterine abdominal wall-omental adhesions) Type of Anesthesia: Spinal Episiotomy/Laceration: None EBL (cc): 1,000 (intraop urine 150 ml) Delivery, Single - Stages of Labor Date of Delivery: 01/23/19 Time of Delivery: 08:54 Time Placenta Delivered: 08:55 Placenta: Yes: Manual Removal, Uterine Exploration - Condition of Infant Transportation Consultant/Engineering Executive Present: Yes Name: [facility] Infant Gender: Female Weight: 8 lb 1 oz Position: Right, OT Total Hours ROM (Hrs/Mins): 2min - 1 Minute Total Score: 9 5 Minutes Total Score: 9 - Feeding Plan Initial Plan: Exclusive throughout hospitalization Remarks - Remarks Remarks: 28 yrs ,GBS neg Indication ; 38.1 weeks iup with previous c/section , IDDM type -2 uncontrolled , morbid obesity
--- NOTE | 2019-01-23 11:31 | OP ---
Operative Note - Note: Operative Date: 01/23/19 Pre-Operative Diagnosis: 38.1 weeks, previous c/s , IDDM uncontrolled , morbid obesity Operation: Repeat LFTC/Section , Lysis of Extensive adhesions uteroabdominal wall- omentum Findings: Baby Girl born at 8.54 AM , ROT position 9/9, wt 8'1" , Ht 19.5" addhesions thick bands in the middle of uterus body to both sides lateral abdominal wall , ant abd wall & omentum bands were clamped & cut & tranfixed . inthe middle of uterine wall transverse ecto uterine wall tear bleeding sutured with biosyn o both tubes & ovaries normal dR Locke present in the OR Surgeon: Sandra Ugarte Field Crop Farmer: Marshal Gonzalez Anesthesiologist/RAILROAD SIGNAL TECHNICIAN: Chirag Posey Anesthesia: Spinal Specimens Removed: cord segment for gas. cord blood. placenta Estimated Blood Loss (mls): 1,000 Drains, Volume Out (mls): 150 (krishnan output, sandra color ) Fluid Volume Replaced (mls): 1,200 Operative Report Dictated: Yes
--- NOTE | 2019-01-23 17:06 | CONSULT ---
Consult Consult Specialty:: Endocrinology Referred by:: Dr Cruz Reason for Consultation:: Management of blood sugar - History of Present Illness Chief Complaint: Hyperglycemia History of Present Illness: This is a 28 y/o f with h/o T2DM for a few years on Metformin who was initially treated with Humalog and Humulin R after she was found to be . She was switched to Basaglar and Admelog with improvement in blood sugar. Pt had however been noncompliant with Insulin, diet and follow up. Pt is currently post C section with normal blood sugars. Pt didn't come for f/u the the last few weeks because she was tired. 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 No: Migraine, Seizure Cardio/Vascular: Yes: HTN (h/o preclempsia 2013 pregn, HTN). No: Murmur Pulmonary: Yes: Asthma (rx inhaler) Gastrointestinal: No: Gastritis, GERD Hepatobiliary: Yes: Choledocholithiasis (h/o chlecystectomy). No: Hepatitis B, Hepatitis C Renal/: No: UTI ...LMP: 05/01/18 Infectious Disease: No: AIDS, HIV, STD's, Tuberculosis Psych: No: Addictions, Anxiety, Bipolar, Depression, Panic, Psychosis, Schizophrenia, Other Endocrine: Yes: Diabetes Mellitus (started with GDM on diet control in 2012 currently IDDM) - Past Surgical History Past Surgical History: Yes: Cholecystectomy, (2012) - Alcohol/Substance Use Hx Alcohol Use: No History of Substance Use: reports: None - Smoking History Smoking history: Never smoked Have you smoked in the past 12 months: No If you are a former smoker, when did you quit?: 1.5 years - Social History History of Recent Travel: No Home Medications - Allergies Allergies/Adverse Reactions: Allergies Allergy/AdvReac Type Severity Reaction Status Date / Time amoxicillin Allergy Intermediate Rash Verified 01/23/19 07:01 - Home Medications Home Medications: Ambulatory Orders Albuterol Sulfate Inhaler - [Ventolin HFA Inhaler -] 1 - 2 inh PO Q4H PRN Vitamins (Sjr) - 1 tab PO DAILY 12/18/18 Insulin Glargine,Hum.rec.anlog [Basaglar Kwikpen U-100] 34 unit SQ HS 12/21/18 Acetaminophen [Tylenol .Regular Strength -] 500 mg PO Q4H PRN #30 tablet Ferrous Sulfate [Feosol] 325 mg PO DAILY #30 tab 01/24/19 Ibuprofen 600 mg PO Q6H PRN #30 tablet 01/24/19 Ibuprofen [Motrin -] 600 mg PO Q4H PRN tablet 01/24/19 Vitamins (Sjr) - 1 tab PO DAILY #30 tablet 01/24/19 Sennosides/Docusate Sodium [Pericolace -] 2 tablet PO HS PRN #30 tablet oxyCODONE HCL [Roxicodone -] 5 mg PO Q6H PRN #20 tablet MDD 20 mg 01/24/19 oxyCODONE HCL [Roxicodone -] 5 mg PO Q6H PRN #20 tablet MDD 20 mg 01/24/19 Review of Systems - Review of Systems Constitutional: reports: No Symptoms Eyes: reports: No Symptoms HENT: reports: No Symptoms Neck: reports: No Symptoms Cardiovascular: reports: No Symptoms Respiratory: reports: No Symptoms Gastrointestinal: reports: No Symptoms Genitourinary: reports: No Symptoms Musculoskeletal: reports: No Symptoms Physical Exam Vital Signs: Vital Signs Temperature 98.2 F 01/23/19 13:30 Pulse Rate 72 01/23/19 13:30 Respiratory Rate 20 01/23/19 16:25 Blood Pressure 135/79 01/23/19 13:30 O2 Sat by Pulse Oximetry (%) 100 01/23/19 12:00 Constitutional: Yes: No Distress, Calm Eyes: Yes: Conjunctiva Clear, EOM Intact HENT: Yes: Atraumatic, Normocephalic Neck: Yes: Supple, Trachea Midline Cardiovascular: Yes: Regular Rate and Rhythm Respiratory: Yes: Regular, CTA Bilaterally Gastrointestinal: Yes: Normal Bowel Sounds Musculoskeletal: Yes: WNL Extremities: Yes: WNL Edema: No Neurological: Yes: Alert, Oriented Assessment/Plan AP; S/P C section T2DM Monitor Blood sugar Novolog SS coverage No need for Basal Insulin at this point will f/u
[2019-01-23] MEDS: CEFAZOLIN 1 GM/D5W 1 GM/50 ML BAG IVPB SCH (17:39)
--- NOTE | 2019-01-23 22:05 | OP ---
DATE OF OPERATION: 01/23/2019 PREOPERATIVE DIAGNOSIS: 38.1 weeks, previous section, insulin- dependent diabetes, not well controlled, pregestational. POSTOPERATIVE DIAGNOSIS: 38.1 weeks, previous section, insulin- dependent diabetes, not well controlled, pregestational. Extensive uterine , abdominal wall & omental adhesions OPERATION: Repeat low flap transverse section, lysis of extensive adhesions due to abdominal wall omental adhesions. SURGEON: Sandra Ugarte M.D. LABORER CARPENTRY DOCK SURGEON: Brian Aguirre ANESTHESIOLOGIST: Kalpesh Caceres MD ANESTHESIA: Spinal CLERICAL TRANSCRIBER: Mt Locke MD FINDINGS: This is a 28-year-old, 5, para 1-0-3-1, previous section due to preeclampsia at 37 weeks and has insulin-dependent diabetes prior to the . Her last hemoglobin A1c is 7.8 and her BGM were not well controlled. Also progressivly rise of urine proteinuria was noted, and patient not in labor, cervix was closed. DESCRIPTION OF PROCEDURE: Patient was taken to the operating room table. Abdomen was shaved and prepped, Baker catheter was placed. Spinal anesthesia was given. She was in supine position. Abdomen was painted and draped in the usual manner. Pfannenstiel incision was made. The skin, subcutaneous tissue, anterior rectus sheath was incised transversely. Bleeding points were clamped and cauterized. Rectus muscle was from the rectus sheath, and parietal peritoneum was opened vertically but anteriorly in the middle of the uterus. The uterus was adhered to the abdominal wall, and the lower uterine segment was identified. Bladder peritoneum was incised transversely. Lower uterine segment was incised transversely. Amniotic fluid was cleared. The baby was delivered at 8:54 a.m., baby girl from ROT position, and baby's Apgars were 9 and 9. Cord was clamped, cut and cord segment was collected for the cord blood gases, and the cord blood was collected. Placenta was removed completely with the membranes while exteriorizing the uterus. The adhesion band was snapped. There was superficial tear noted in the middle of the corpus of the uterus. There was transverse tear which was bleeding. Incision first was closed in first layer Biosyn 0 suture,continuous locking sutures were taken. Then the tear in the external uterine wall was closed with the Biosyn 0 suture , with locking sutures. Then the 2nd layer in the incision was taken, imbricating the first layer, Hemostasis was checked in the 2nd layer, even the bladder peritoneum was included in the 2nd layer There was both the sides of the uterus thick adhesion bands noted laterally between uterus & lateral abdominal wall . .First the right lateral band, , thick, was clamped, cut and the uterus was from the abdominal wall, and then the band was transfixed with the Biosyn 0 suture. There were omental adhesions between the uterus and the omentum that were clamped, cut and ligated. Again the Left lateral side of the uterus and the lateral abdominal wall on the left side, the thick band was clamped, cut, and transfixed with a Biosyn 0 suture. Hemostasis was verified still to ensure complete hemostasis. Surgicel was placed on both incision & tear site . Both tubes and ovaries were normal. Irrigation was done, and the instrument, sponge count was correct, and the closure of the abdomen was done. The parietal peritoneum was closed with Vicryl 0 suture, muscles were approximated together with the Vicryl 0 suture, and interrupted sutures were taken underneath the rectus sheath. Hemostasis was verified and the rectus sheath was closed with Vicryl 0 continuous suture. Hemostasis was checked, and skin was released, and subcutaneous tissue was approximated with 2-0 Vicryl continuous sutures. Skin was approximated with the letty. Pressure dressing was given. Blood clots were removed from the vagina. Estimated blood loss was 1000 mL. Intraoperative urine output was 150 mL, sandra color. She received 2 g of IV Ancef. Patient tolerated procedure well, and she was transferred to the recovery room in stable condition. Her BGM prior to the section was 133, and postoperative, in the recovery room BGM was 117. Marcy [id number] MTDErvin
[2019-01-23] MEDS: INSULIN SLIDING SCALE (NOVOLOG) 1 VIAL SQ SCH (22:36)
[2019-01-24] MEDS: CEFAZOLIN 1 GM/D5W 1 GM/50 ML BAG IVPB SCH ×2 (01:07→09:26)
[2019-01-24] MEDS: ACETAMINOPHEN 325 MG TABLET (FP) PO PRN ×6 (01:34→23:24)
[2019-01-24] MEDS: SIMETHICONE 80 MG TAB.CHEW (FP) PO PRN ×6 (01:34→23:24)
[2019-01-24] MEDS: oxyCODONE HCL 5 MG TABLET PO PRN ×5 (01:35→23:24)
[2019-01-24] MEDS: IBUPROFEN 600 MG TABLET (FP) PO PRN ×4 (05:29→23:23)
[2019-01-24] MEDS ORDERED: oxyCODONE HCL 5 MG TABLET PO PRN (06:00)
[2019-01-24] MEDS: INSULIN SLIDING SCALE (NOVOLOG) 1 VIAL SQ SCH ×4 (07:05→22:07)
[2019-01-24 07:44] LABS: BASO % 0.4 % (0-2.0); EOS % 0.1 % (0-4.5); HEMATOCRIT 34.7 % (32.4-45.2); HEMOGLOBIN 11.4 GM/dL (10.7-15.3); LYMPH % 14.1 % (8-40); MCH 28.6 pg (25.7-33.7); MCHC 32.8 g/dl (32.0-36.0); MEAN CELL VOLUME 87.2 fl (80-96); MEAN PLT VOLUME 10.8 fl (7.5-11.1); MONO % 4.7 % (3.8-10.2); NEUT % 80.7 % (42.8-82.8); PLATELET COUNT 178 K/MM3 (134-434); RBC 3.99 M/mm3 (3.60-5.2); RDW 15.4 % (11.6-15.6); WHITE BLOOD COUNT 12.6 K/mm3 (4.0-10.0)
--- NOTE | 2019-01-24 08:19 | PN ---
Post Progress Note Type of Delivery: Repeat C/S Vital Signs: Vital Signs Temperature 98.2 F 01/24/19 06:00 Pulse Rate 83 01/24/19 06:00 Respiratory Rate 18 01/24/19 07:00 Blood Pressure 135/83 01/24/19 06:00 O2 Sat by Pulse Oximetry (%) 100 01/23/19 12:00 Breast Exam: Yes: Soft Uterus: Yes: Fundus below umbilicus Incision: Yes: Dressing dry and intact, Sutures intact Abdomen/GI: Yes: Abdomen soft, Tolerating PO Lochia: Yes: Rubra Lochia, amount: Small Extremities: Yes: Calves non-tender Perineum: Yes: Intact Activity: Ambulating Assessment/Plan 28yo s/p RTLCS, POD#1 Routine PP care Appreciate Endo consult Labs pending Anticipate d/c to home POD#4 Agatha Galo MD
--- NOTE | 2019-01-24 09:06 | PN ---
Progress Note (short form) - Note Progress Note: Mild abd pain Feels constipated, No BM, No flatus BGM stable on liquid diet Vital Signs Period Temp Pulse Resp BP Sys/Ham Pulse Ox Last 24 Hr 97.8 F-99.0 F 72-84 18-20 117-144/66-98 100-100 PE: AOx3 Neck: supple, No JVD HEENT: PERRL, EOMI Lungs: CTA CVS: S1S2 Abd: +BS Ext: No edema Neuro: No focal deficit CMP POC Glucometer 121 UNITS (80-120) 01/24/19 06:27 Current Medications Generic Name Dose Route Start Last Admin Trade Name Freq PRN Reason Stop Dose Admin Acetaminophen 650 mg 01/23/19 10:03 01/24/19 05:29 Tylenol - PO 650 mg Q4H PRN Administration PAIN LEVEL 1-5 Bisacodyl 10 mg 01/24/19 10:04 Dulcolax Suppository - RC PRN PRN CONSTIPATION Diphenhydramine HCl 25 mg 01/23/19 10:17 01/23/19 15:11 Benadryl Injection - IVPUSH 25 mg Q4H PRN Administration Pruritis Diphtheria/Tetanus/Acell Pertussis 0.5 ml 01/24/19 10:00 Boostrix - IM 01/24/19 10:01 .ONCE ONE Enoxaparin Sodium 40 mg 01/24/19 10:00 Lovenox - SQ DAILY HAMIDA Fentanyl 25 mcg 01/23/19 10:17 Sublimaze Injection - IVPUSH [id number] PRN PAIN-PACU ORDER X 4 DOSES ONLY Ferrous Sulfate 325 mg 01/24/19 17:30 Feosol - PO BIDWM HAMIDA Cefazolin Sodium 1 gm in 50 mls @ 100 mls/hr 01/23/19 18:00 01/24/19 01:07 Ancef 1 Gm Premixed Ivpb - IVPB 01/24/19 17:59 100 mls/hr Q8H-IV HAMIDA Administration Oxytocin/Sodium Chloride 20 unit in 1,000 mls @ 125 mls/hr 01/23/19 10:15 09:45 Normal Saline+20 Units Oxytocin - IV 125 mls/hr ASDIR HAMIDA Administration Lactated Ringer's 1,000 mls @ 125 mls/hr 01/23/19 10:30 Lactated Ringers Solution IV ASDIR [facility] Ibuprofen 600 mg 01/23/19 10:03 01/24/19 05:29 Motrin - PO 600 mg Q4H PRN Administration PAIN LEVEL 4 - 6 Ibuprofen 800 mg 01/23/19 10:03 01/23/19 19:40 Caldolor Injection - IVPB 800 mg Q8H PRN Administration PAIN LEVEL 1-5 Insulin Aspart 1 vial 01/24/19 07:00 01/24/19 07:05 Novolog Vial Sliding Scale - SQ Not Given TIDAC [facility] Protocol Insulin Aspart 1 vial 01/23/19 22:00 01/23/19 22:36 Novolog Vial Sliding Scale - SQ Not Given HS [facility] Protocol Methylergonovine Maleate 0.2 mg 01/23/19 10:03 Methergine Injection - IM Q4H PRN Excessive Bleeding (L&D) Ondansetron HCl 4 mg 01/23/19 10:17 Zofran Injection IVPUSH Q6H PRN NAUSEA AND/OR VOMITING Ondansetron HCl 4 mg 01/23/19 10:17 Zofran Injection IVPUSH Q4H PRN NAUSEA Oxycodone HCl 5 mg 01/24/19 01:30 01/24/19 05:29 Roxicodone - PO 5 mg Q4H PRN Administration PAIN LEVEL 6-10 Multivit/Folic Acid/Iron 1 tab 01/24/19 10:00 Vitamins (Sjr) - PO DAILY [facility] Senna/Docusate Sodium 2 tablet 01/23/19 10:03 Pericolace - PO HS PRN CONSTIPATION Simethicone 80 mg 01/23/19 10:03 01/24/19 05:28 Mylicon - PO 80 mg Q4H PRN Administration GAS AP: T2DM S/P C section BGM QACHS Novolog Ss Coverage Will F/U
[2019-01-24] MEDS ORDERED: DIPHTH,PERTUSS(ACELL),TET 0.5 ML DISP.SYRIN IM ONE (10:00)
[2019-01-24] MEDS: ENOXAPARIN NA (PORCINE) 40 MG/0.4 ML DISP.SYRIN SQ SCH (10:35)
[2019-01-24] MEDS: PRENATAL VITAMINS W/ FOLIC ACID TABLET (FP) PO SCH (10:35)
--- NOTE | 2019-01-24 12:14 | PN ---
Progress Note (short form) - Note Progress Note: Anesthesia postop note 28 y/o F s/p spinal anesthesia duramorph for section POD#1 vss, aaox3, sensory motor intact distall. No anesthesia complications.
[2019-01-24] MEDS: BISACODYL 10 MG SUPP.RECT RC PRN ×2 (13:42→23:25)
[2019-01-24] MEDS: FERROUS SO4 325 MG TABLET (FP) PO SCH (19:42)
[2019-01-25] MEDS: INSULIN SLIDING SCALE (NOVOLOG) 1 VIAL SQ SCH ×4 (06:05→22:30)
[2019-01-25] MEDS: IBUPROFEN 600 MG TABLET (FP) PO PRN ×3 (06:11→20:57)
[2019-01-25] MEDS: SIMETHICONE 80 MG TAB.CHEW (FP) PO PRN ×3 (06:11→20:56)
[2019-01-25] MEDS: ACETAMINOPHEN 325 MG TABLET (FP) PO PRN ×3 (06:12→20:56)
--- NOTE | 2019-01-25 06:32 | PN ---
Progress Note (short form) - Note Progress Note: pod 3 doing well, no c/o voids ok ,passing gas CBC, BMP 01/24/19 07:20 Last Vital Signs Temp Pulse Resp BP Pulse Ox 98.6 F 97 H 18 136/85 100 01/24/19 22:00 01/24/19 22:00 01/24/19 22:00 01/24/19 22:00 01/23/19 12:00 abdomen soft, no distension, no cva incision dry, clean no calf tenderness lochia mild plan ambulate , cbc monitor BGM
[2019-01-25] MEDS: FERROUS SO4 325 MG TABLET (FP) PO SCH ×2 (09:16→18:46)
--- NOTE | 2019-01-25 09:59 | PN ---
Progress Note (short form) - Note Progress Note: Feels better Eager to go home Moving bowels BGM stable on liquid diet Vital Signs Period Temp Pulse Resp BP Sys/Ham Pulse Ox Last 24 Hr 97.7 F-98.6 F 85-97 128-136/80-85 PE: AOx3 Neck: supple, No JVD HEENT: PERRL, EOMI Lungs: CTA CVS: S1S2 Abd: +BS Ext: No edema Neuro: No focal deficit CMP POC Glucometer 131 UNITS (80-120) 01/25/19 05:56 Current Medications Generic Name Dose Route Start Last Admin Trade Name Freq PRN Reason Stop Dose Admin Acetaminophen 650 mg 01/23/19 10:03 01/25/19 06:12 Tylenol - PO 650 mg Q4H PRN Administration PAIN LEVEL 1-5 Bisacodyl 10 mg 01/24/19 10:04 01/24/19 23:25 Dulcolax Suppository - RC 10 mg PRN PRN Administration CONSTIPATION Diphenhydramine HCl 25 mg 01/23/19 10:17 01/23/19 15:11 Benadryl Injection - IVPUSH 25 mg Q4H PRN Administration Pruritis Enoxaparin Sodium 40 mg 01/24/19 10:00 01/24/19 10:35 Lovenox - SQ 40 mg DAILY HAMIDA Administration Fentanyl 25 mcg 01/23/19 10:17 Sublimaze Injection - IVPUSH [id number] PRN PAIN-PACU ORDER X 4 DOSES ONLY Ferrous Sulfate 325 mg 01/24/19 17:30 01/25/19 09:16 Feosol - PO Not Given BIDWM [facility] Oxytocin/Sodium Chloride 20 unit in 1,000 mls @ 125 mls/hr 01/23/19 10:15 09:45 Normal Saline+20 Units Oxytocin - IV 125 mls/hr ASDIR [facility] Administration Lactated Ringer's 1,000 mls @ 125 mls/hr 01/23/19 10:30 Lactated Ringers Solution IV ASDIR [facility] Ibuprofen 600 mg 01/23/19 10:03 01/25/19 06:11 Motrin - PO 600 mg Q4H PRN Administration PAIN LEVEL 4 - 6 Ibuprofen 800 mg 01/23/19 10:03 01/23/19 19:40 Caldolor Injection - IVPB 800 mg Q8H PRN Administration PAIN LEVEL 1-5 Insulin Aspart 1 vial 01/24/19 07:00 01/25/19 06:05 Novolog Vial Sliding Scale - SQ Not Given TIDAC [facility] Protocol Insulin Aspart 1 vial 01/23/19 22:00 01/24/19 22:07 Novolog Vial Sliding Scale - SQ Not Given HS [facility] Protocol Methylergonovine Maleate 0.2 mg 01/23/19 10:03 Methergine Injection - IM Q4H PRN Excessive Bleeding (L&D) Ondansetron HCl 4 mg 01/23/19 10:17 Zofran Injection IVPUSH Q6H PRN NAUSEA AND/OR VOMITING Ondansetron HCl 4 mg 01/23/19 10:17 Zofran Injection IVPUSH Q4H PRN NAUSEA Oxycodone HCl 5 mg 01/24/19 01:30 01/24/19 23:24 Roxicodone - PO 5 mg Q4H PRN Administration PAIN LEVEL 6-10 Multivit/Folic Acid/Iron 1 tab 01/24/19 10:00 01/24/19 10:35 Vitamins (Sjr) - PO 1 tab DAILY [facility] Administration Senna/Docusate Sodium 2 tablet 01/23/19 10:03 Pericolace - PO HS PRN CONSTIPATION Simethicone 80 mg 01/23/19 10:03 01/25/19 06:11 Mylicon - PO 80 mg Q4H PRN Administration GAS AP: T2DM: Blood sugar stable: Hasn't needed Novolog coverage S/P C section BGM QACHS Novolog Ss Coverage Diet discussed. Will F/U
[2019-01-25] MEDS: BISACODYL 10 MG SUPP.RECT RC PRN (10:59)
[2019-01-25] MEDS: PRENATAL VITAMINS W/ FOLIC ACID TABLET (FP) PO SCH (10:59)
[2019-01-25] MEDS: ENOXAPARIN NA (PORCINE) 40 MG/0.4 ML DISP.SYRIN SQ SCH (11:06)
--- NOTE | 2019-01-25 15:01 | DS ---
Physical Exam-[facility]NER Vital Signs: Vital Signs Temperature 97.8 F 01/25/19 10:00 Pulse Rate 97 H 01/25/19 10:00 Respiratory Rate 18 01/25/19 10:00 Blood Pressure 124/76 01/25/19 10:00 O2 Sat by Pulse Oximetry (%) 100 01/23/19 12:00 Selected Entries 01/27/19 09:11 Temperature 98.3 F Pulse Rate 93 H Respiratory 20 Rate Blood Pressure 136/82 Laboratory Tests 01/26/19 10:31 POC Glucometer 168 Constitutional: Yes: Well Nourished, Obese, Other (c/o incisional pain) Eyes: Yes: WNL HENT: Yes: WNL Neck: Yes: WNL Cardiovascular: Yes: WNL, Regular Rate and Rhythm Respiratory: Yes: WNL, Regular Gastrointestinal: Yes: WNL, Normal Bowel Sounds, Soft, Abdomen, Obese, Other ( bm done) ....Post : Yes: Uterus firm (below umblicus), Uterus tender Breast(s): Yes: WNL (not BF . soft) Musculoskeletal: Yes: WNL Extremities: Yes: WNL. No: Calf Tenderness Edema: LLE: Trace, RLE: Trace Wound/Incision: Yes: Clean/Dry, Well Approximated, Sudarshan Intact, Open to air. No: Draining, Reddened Neurological: Yes: WNL, Alert, Oriented ...Motor Strength: WNL Labs: CBC, BMP 01/24/19 07:20 Laboratory Tests 01/24/19 01/24/19 01/25/19 16:34 22:03 05:56 POC Glucometer 93 114 131 01/25/19 12:09 POC Glucometer 109 Laboratory Tests 01/26/19 01/26/19 01/26/19 06:33 13:36 18:37 POC Glucometer 100 115 111 01/26/19 23:30 POC Glucometer 162 Delivery - Delivery Section: Repeat, Low Flap Transverse (& Lysis of extensive uterine abdominal wall-omental adhesions) Type of Anesthesia: Spinal Episiotomy/Laceration: None EBL (cc): 1,000 (intraop urine 150 ml) Delivery, Single - Stages of Labor Date of Delivery: 01/23/19 Time of Delivery: 08:54 Time Placenta Delivered: 08:55 Placenta: Yes: Manual Removal, Uterine Exploration - Condition of Director Of Market Research/Beverage Specialist Present: Yes Name: Mt Locke Gender: Female Weight: 8 lb 1 oz Position: Right, OT Total Hours ROM (Hrs/Mins): 2min - 1 Minute Total Score: 9 5 Minutes Total Score: 9 - Feeding Plan Initial Plan: Exclusive throughout hospitalization Remarks - Remarks Remarks: 28 yrs ,GBS neg Indication ; 38.1 weeks iup with previous c/section , IDDM type -2 uncontrolled , morbid obesity Post op BGM , 150 , did not require insulin pain management with tylenol, motrin or oxydone she will return to clinic for sudarshan removal pt was discharged by Dr munoz on 01/27/19 Discharge Summary Reason For Visit: ADMIT-C/SECTION Current Active Problems Diabetes mellitus, insulin dependent (IDDM), uncontrolled (Acute) Morbid obesity with BMI of 40.0-44.9, adult (Acute) with 38 completed weeks gestation (Acute) Previous section (Acute) Condition: Stable - Instructions Diet, Activity, Other Instructions: Discharge Instructions * Out of Bed * * Regular Diet * Fabi Care * Avoid sex for 6 weeks * ct vit & iron * RTC 1 week Monday for sudarshan removal * BGM once fasting & once 2 hr PP keep log * Keep appt with Dr Haas in 1-2 week at his office If you experience excessive bleeding or fever over 101 degrees, call doctor, the clinic or go to the Emergency Room.Diabetic Diet Follow up in one week with Dr. Ugarte Referrals: Sandra Ugarte MD [Staff Physician] - Disposition: HOME - Home Medications Comprehensive Discharge Medication List: Ambulatory Orders Albuterol Sulfate Inhaler - [Ventolin HFA Inhaler -] 1 - 2 inh PO Q4H PRN Vitamins (Sjr) - 1 tab PO DAILY 12/18/18 Insulin Glargine,Hum.rec.anlog [Basaglar Kwikpen U-100] 34 unit SQ HS 12/21/18 Acetaminophen [Tylenol .Regular Strength -] 500 mg PO Q4H PRN #30 tablet Ferrous Sulfate [Feosol] 325 mg PO DAILY #30 tab 01/24/19 Ibuprofen 600 mg PO Q6H PRN #30 tablet 01/24/19 Ibuprofen [Motrin -] 600 mg PO Q4H PRN tablet 01/24/19 Vitamins (Sjr) - 1 tab PO DAILY #30 tablet 01/24/19 Sennosides/Docusate Sodium [Pericolace -] 2 tablet PO HS PRN #30 tablet oxyCODONE HCL [Roxicodone -] 5 mg PO Q6H PRN #20 tablet MDD 20 mg 01/24/19 oxyCODONE HCL [Roxicodone -] 5 mg PO Q6H PRN #20 tablet MDD 20 mg 01/24/19
[2019-01-25] MEDS: SENNOSIDES/DOCUSATE COMBO (SENNA PLUS) TABLET (UD) PO PRN (20:57)
[2019-01-26] MEDS: INSULIN SLIDING SCALE (NOVOLOG) 1 VIAL SQ SCH ×4 (06:40→22:34)
[2019-01-26] MEDS: IBUPROFEN 600 MG TABLET (FP) PO PRN ×2 (08:41→20:20)
[2019-01-26] MEDS: ACETAMINOPHEN 325 MG TABLET (FP) PO PRN ×2 (08:42→20:19)
[2019-01-26 08:49] LABS: BASO % 1.1 % (0-2.0); EOS % 1.8 % (0-4.5); HEMATOCRIT 32.6 % (32.4-45.2); HEMOGLOBIN 10.9 GM/dL (10.7-15.3); MCH 28.7 pg (25.7-33.7); MCHC 33.5 g/dl (32.0-36.0); MEAN CELL VOLUME 85.7 fl (80-96); MEAN PLT VOLUME 8.9 fl (7.5-11.1); MONO % 4.8 % (3.8-10.2); NEUT % 76.3 % (42.8-82.8); PLATELET COUNT 254 K/MM3 (134-434); RBC 3.81 M/mm3 (3.60-5.2); RDW 15.2 % (11.6-15.6); WHITE BLOOD COUNT 8.6 K/mm3 (4.0-10.0)
[2019-01-26] MEDS: FERROUS SO4 325 MG TABLET (FP) PO SCH ×2 (09:38→17:43)
[2019-01-26] MEDS: PRENATAL VITAMINS W/ FOLIC ACID TABLET (FP) PO SCH (10:29)
--- NOTE | 2019-01-26 10:52 | PN ---
Post Progress Note - Subjective Subjective: Pain controlled. No fevers/chills No N/V. Ambulating. Post Day: 3 Type of Delivery: Repeat C/S Vital Signs: Vital Signs Temperature 98.2 F 01/25/19 21:41 Pulse Rate 102 H 01/25/19 21:41 Respiratory Rate 18 01/25/19 21:41 Blood Pressure 134/74 01/25/19 21:41 O2 Sat by Pulse Oximetry (%) 100 01/23/19 12:00 Uterus: Yes: Fundus below umbilicus Incision: Yes: Dressing dry and intact Abdomen/GI: Yes: Abdomen soft, Passing flatus, Tolerating PO Lochia: Yes: Rubra Lochia, amount: Small Extremities: Yes: Calves non-tender Perineum: Yes: Intact Activity: Ambulating - Labs Labs: CBC WBC 8.6 K/mm3 (4.0-10.0) 01/26/19 08:35 RBC 3.81 M/mm3 (3.60-5.2) 01/26/19 08:35 Hgb 10.9 GM/dL (10.7-15.3) 01/26/19 08:35 Hct 32.6 % (32.4-45.2) 01/26/19 08:35 MCV 85.7 fl (80-96) 01/26/19 08:35 MCH 28.7 pg (25.7-33.7) 01/26/19 08:35 MCHC 33.5 g/dl (32.0-36.0) 01/26/19 08:35 RDW 15.2 % (11.6-15.6) 01/26/19 08:35 Plt Count 254 K/MM3 (134-434) D 01/26/19 08:35 MPV 8.9 fl (7.5-11.1) D 01/26/19 08:35 Absolute Neuts (auto) 6.5 K/mm3 (1.5-8.0) 01/26/19 08:35 Neutrophils % 76.3 % (42.8-82.8) 01/26/19 08:35 Lymphocytes % 16.0 % (8-40) 01/26/19 08:35 Monocytes % 4.8 % (3.8-10.2) 01/26/19 08:35 Eosinophils % 1.8 % (0-4.5) D 01/26/19 08:35 Basophils % 1.1 % (0-2.0) 01/26/19 08:35 Nucleated RBC % 0 % (0-0) 01/26/19 08:35 Assessment/Plan 28yo s/p RTLCS, POD#3 Routine PP care Appreciate Endo consult- no insulin required. Cont diet; follow up with endo RTO 1 week for incision check with Dr. Ugarte Previously requested d/c to home today, after speaking with Dr. Ugarte, wants to stay to POD#4, medically stable for discharge today D/C tomorrow per pt request Agatha Galo MD
[2019-01-26] MEDS: SIMETHICONE 80 MG TAB.CHEW (FP) PO PRN (20:19)
[2019-01-26] MEDS: SENNOSIDES/DOCUSATE COMBO (SENNA PLUS) TABLET (UD) PO PRN (20:22)
[2019-01-27] MEDS: INSULIN SLIDING SCALE (NOVOLOG) 1 VIAL SQ SCH ×2 (06:38→11:00)
[2019-01-27] MEDS: FERROUS SO4 325 MG TABLET (FP) PO SCH (08:00)
[2019-01-27 09:12] VITALS: BP 136/82; PULSE 93; TEMP 98.3
[2019-01-27] MEDS: PRENATAL VITAMINS W/ FOLIC ACID TABLET (FP) PO SCH (09:14)
[2019-01-27] MEDS: IBUPROFEN 600 MG TABLET (FP) PO PRN ×2 (09:20→13:13)
[2019-01-27] MEDS: ACETAMINOPHEN 325 MG TABLET (FP) PO PRN ×2 (09:22→13:14)
--- NOTE | 2019-01-28 13:45 | PATH ---
Surgical Pathology Report Patient Name: GUZMAN HUTCHINSON [facility]. Rec. #: [id number] /Age/Gender: 1990 (Age: 28) / F Account: [id number] Location: [facility] OBS/BED SETTER Taken: 01/23/2019 Received: 01/23/2019 Reported: 01/28/2019 Physicians: Sandra Ugarte M.D. Specimen(s) Received PLACENTA Clinical History at 38 weeks, insulin depending diabetic, in 2012, cholecystectomy , repeat Final Diagnosis PLACENTA: THIRD TRIMESTER PLACENTA. TRIVASCULAR CORD. MEMBRANES WITH NO DIAGNOSTIC ABNORMALITIES. Electronically Signed Ponce Martin M.D. Gross Description The specimen is received fresh labeled placenta and is a 436 gram, 20 x18 x 2.0cm. placenta with attached membranes and umbilical cord. The attached membranes are glistening, translucent, and insert marginally. The umbilical cord measures 23 cm. in length and averages 1.2 cm. in diameter. The cord inserts centrally, 5cm from the margin. No true knots or strictures are identified. Cut surface of the umbilical cord reveals 3 vessels. Sectioning reveals red-brown, spongy parenchyma. No lesions are identified. [place] sections are submitted in three cassettes as follows: 1- membrane rolls and umbilical cord; 2-3- full thickness sections of placenta KWS/01/23/2019 sebastianki/01/23/2019
== END 2019-01-27 14:18 | disposition home or self-care (01) | DRG 540 ==
LOC: JLDR 06:05 → J3W 12:33
PROVIDERS: ADMIT Obstetrics & Gynecology; ATTEND Obstetrics & Gynecology
PROC: 10D00Z1 Extraction of Products of Conception, Low, Open Approach (ICD-10-PCS; principal; 2019-01-23)
PROC: 0DNW0ZZ Release Peritoneum, Open Approach (ICD-10-PCS; 2019-01-23)
PROC: 0DNU0ZZ Release Omentum, Open Approach (ICD-10-PCS; 2019-01-23)
DX: O34.211 Maternal care for low transverse scar from previous cesarean delivery (principal); O99.214 Obesity complicating childbirth; O24.92 Unspecified diabetes mellitus in childbirth; O99.89 Other specified diseases and conditions complicating pregnancy, childbirth and the puerperium; N85.8 Other specified noninflammatory disorders of uterus; N73.6 Female pelvic peritoneal adhesions (postinfective); Z3A.38 38 weeks gestation of pregnancy; Z79.4 Long term (current) use of insulin; E11.65 Type 2 diabetes mellitus with hyperglycemia; Z37.0 Single live birth
CPT/HCPCS: 36415; 36600; 82803; 82962; 85025; 88307-TC; J0131

== ENCOUNTER 2019-01-28 10:11 | Emergency (ER) | payer OTHER ==
[2019-01-28 10:33] VITALS: BMI 452.7
--- NOTE | 2019-01-28 11:05 | PDOC ---
History of Present Illness - General Chief Complaint: Chest Pain Stated Complaint: SOB Time Seen by Provider: 01/28/19 11:05 - History of Present Illness Initial Comments: 28 year old female with PMH of DM and preeclampsia, 5 days for 38 week delivery presenting with chest pain for the past evening and bilateral leg swelling. Her was complicated with pre-eclampsia (proteinuria and HTN) . She states that her chest pain is worse with exertion but not pleuritic, non- radiating. It does co-present with SOB. Her leg selling has acutely worsened as well over the past two days as well. denies fevers, chills, nausea, vomiting, diarrhea, or other symptoms. 01/28/19 11:14 Past History - Past Medical History Allergies/Adverse Reactions: Allergies Allergy/AdvReac Type Severity Reaction Status Date / Time amoxicillin Allergy Intermediate Rash Verified 01/23/19 07:01 Home Medications: Ambulatory Orders Albuterol Sulfate Inhaler - [Ventolin HFA Inhaler -] 1 - 2 inh PO Q4H PRN Vitamins (Sjr) - 1 tab PO DAILY 12/18/18 Insulin Glargine,Hum.rec.anlog [Basaglar Kwikpen U-100] 34 unit SQ HS 12/21/18 Acetaminophen [Tylenol .Regular Strength -] 500 mg PO Q4H PRN #30 tablet Ferrous Sulfate [Feosol] 325 mg PO DAILY #30 tab 01/24/19 Ibuprofen 600 mg PO Q6H PRN #30 tablet 01/24/19 Ibuprofen [Motrin -] 600 mg PO Q4H PRN tablet 01/24/19 Vitamins (Sjr) - 1 tab PO DAILY #30 tablet 01/24/19 Sennosides/Docusate Sodium [Pericolace -] 2 tablet PO HS PRN #30 tablet oxyCODONE HCL [Roxicodone -] 5 mg PO Q6H PRN #20 tablet MDD 20 mg 01/24/19 oxyCODONE HCL [Roxicodone -] 5 mg PO Q6H PRN #20 tablet MDD 20 mg 01/24/19 Labetalol HCl [Normodyne -] 200 mg PO BID 5 Days #10 tablet 01/28/19 Asthma: Yes (Last attack 10 months ago) Cancer: No Cardiac Disorders: No COPD: No Diabetes: Yes (Dx IDDM 2013) HTN: No Seizures: No Thyroid Disease: No - Surgical History Cholecystectomy: Yes - Reproductive History (#): 5 Para: 1 - Immunization History Immunization Up to Date: Yes - Suicide/Smoking/Psychosocial Hx Smoking History: Never smoked Have you smoked in the past 12 months: No If you are a former smoker, when did you quit?: 1.5 years Information on smoking cessation initiated: No Hx Alcohol Use: No Drug/Substance Use Hx: No Substance Use Type: None Hx Substance Use Treatment: No Review of Systems - Review of Systems Constitutional: No: Diaphoresis, Fever, Loss of Appetite HEENTM: No: Blurred Vision, Tearing Respiratory: Yes: Shortness of Breath, SOB with Exertion. No: SOB at Rest, Wheezing, Productive cough, Hemoptysis Cardiac (ROS): Yes: Chest Pain, Chest Tightness. No: Irregular Heart Rate, Lightheadedness, Palpitations, Syncope ABD/GI: No: Diarrhea, Nausea, Vomiting : No: Burning, Dysuria, Discharge, Frequency Musculoskeletal: No: Back Pain, Gout, Joint Pain, Joint Swelling Integumentary: No: Bruising, Lesions, Lumps Neurological: No: Headache, Numbness, Paresthesia Psychiatric: No: Anxiety, Depression Hematologic/Lymphatic: No: Anemia, Blood Clots, Easy Bleeding *Physical Exam - Vital Signs Last Vital Signs Temp Pulse Resp BP Pulse Ox 98.7 F 95 H 19 151/80 95 01/28/19 10:32 01/28/19 10:32 01/28/19 10:32 01/28/19 10:32 01/28/19 10:32 - Physical Exam General Appearance: Yes: Nourished, Appropriately Dressed. No: Apparent Distress HEENT: positive: EOMI, MALIA, Normal ENT Inspection, Normal Voice, Pharynx Normal Neck: positive: Trachea midline, Normal Thyroid, Supple. negative: Tender, Rigid Respiratory/Chest: positive: Lungs Clear, Normal Breath Sounds. negative: Chest Tender, Respiratory Distress, Accessory Muscle Use Cardiovascular: positive: Regular Rhythm, Regular Rate Gastrointestinal/Abdominal: positive: Normal Bowel Sounds, Flat, Soft. negative : Tender Musculoskeletal: positive: Normal Inspection. negative: Decreased Range of Motion Extremity: positive: Normal Capillary Refill, Normal Inspection, Normal Range of Motion. negative: Tender Integumentary: positive: Normal Color, Dry, Warm Neurologic: positive: Fully Oriented, Alert, Normal Mood/Affect, Normal Response , Motor Strength 5/5 ED Treatment Course - LABORATORY CBC & Chemistry Diagram: 01/28/19 12:06 01/28/19 12:06 Medical Decision Making - Medical Decision Making 28 year old female with history of preeclampsia presenting with HTN, SOB, proteinuria, and bl le edema. Patient also admitting to headache so unsure if the HTN is 2/2 pain. UA demonstrating proteinuria and CBC wnl. EKG demonstrating rate 89, UT 176, QRS 82, DOp055, normal axis, and LVH 21mm by Goltry criteria. No ischemic changes. CTA chest performed to rule out PE. 01/28/19 13:23 CTA negative and labs roughly WNL. Spoke to Dr. Sprague (covering for [facility] ) and stated that patient could follow up with them at her appointment tomorrow and to give labetalol 200 BID until tomorrow. Pre admin pressure 147/85. Patient given one dose of labetalol 200. 01/28/19 15:57 129/ 90 was repeat pressure. Will DC with 200 BID Labetalol. 01/28/19 16:10 *DC/Admit/Observation/Transfer Diagnosis at time of Disposition: depression associated with fifth - Discharge Dispostion Disposition: HOME Condition at time of disposition: Improved Decision to Admit order: No - Prescriptions Prescriptions: Labetalol HCl [Normodyne -] 200 mg PO BID 5 Days #10 tablet - Referrals Referrals: Sandra Ugarte MD [Staff Physician] - - Patient Instructions Printed Discharge Instructions: DI for Chest Pain, Pre-eclampsia and - induced Hypertension (Alternative Therapy) Additional Instructions: Pelase take your blood pressure medication twice a day until you see your [facility] doctor tomorrow. Please return to the ED if you have new or worsening symptoms. - Post Discharge Activity
--- NOTE | 2019-01-28 12:01 | PDOC ---
Attending Attestation - Resident Resident Name: Nehemiah Dobson - ED Attending Attestation I have performed the following: I have examined & evaluated the patient, The case was reviewed & discussed with the resident, I agree w/resident's findings & plan, Exceptions are as noted - HPI HPI: 01/28/19 11:59 28 F with h/o DM, pre-eclampsia, POD 5 @ 38 weeks, presenting to ED with CP and SOB. Pt states that it began yesterday evening. Pt endorses worsening leg swelling as well. Pt states that the chest pain is exertional, non -pleuritic. No F/C. - Physicial Exam PE: 01/28/19 12:00 "GENERAL: Awake, alert, and fully oriented, in no acute distress. HEAD: No signs of trauma EYES: PERRLA, EOMI, sclera anicteric, conjunctiva clear ENT: Auricles normal inspection, hearing grossly normal, nares patent, oropharynx clear without exudates. Moist mucosa NECK: Nontender, no stepoffs, Normal ROM, supple, no lymphadenopathy, JVD, or masses LUNGS: Breath sounds equal, clear to auscultation bilaterally. No wheezes, and no crackles HEART: Regular rate and rhythm, normal S1 and S2, no murmurs, rubs or gallops ABDOMEN: Soft, nontender, normoactive bowel sounds. No guarding, no rebound. No masses EXTREMITIES: + 2 PE BLE, No clubbing or cyanosis. No cords, erythema, or tenderness NEUROLOGICAL: Cranial nerves II through XII intact. 5/5 strength and sensation in all extremities, Normal speech, normal gait, normal cerebellar function SKIN: Warm, Dry, normal turgor, no rashes or lesions noted. - Medical Decision Making 01/28/19 12:00 28 F with CP + SOB, 5 days . Vitals notable for HTN. Possible pre- eclampsia. Will need to r/o PE. Also consider cardiomyopathy. - Labs, trop, BNP - UA - CTA chest - OB consult 01/28/19 15:36 Pt with likely pre-eclampsia without any severe features. Discussed with Dr. Sprague who recommends labetalol PO, and f/u in office tomorrow. 01/28/19 16:09 CTA normal Pt's BP now 120/90 Pt is well appearing, with normal vitals. Clinically stable for DC at this time. I discussed the physical exam findings, ancillary test results and final diagnoses with the patient. I answered all of the patient's questions. The patient was satisfied with the care received and felt comfortable with the discharge plan and treatment plan. The patient agrees to follow up with the primary care physician within 24-72 hours.
[2019-01-28] MEDS ORDERED: ACETAMINOPHEN 1000 MG/100 ML VIAL (NON FORMULARY) IVPB ONE (12:12)
[2019-01-28 12:25] LABS: EPI CELLS 15.8 /HPF (0-5/HPF); HYALINE CASTS 2 /lpf (0-8); PH,URINE 7.5 (5.0-8.0); URINE APPEARANCE CLOUDY; URINE BACTERIA 205.1 /hpf (NEGATIVE); URINE BILIRUBIN NEGATIVE (NEGATIVE); URINE COLOR YELLOW; URINE GLUCOSE (UA) NEGATIVE (NEGATIVE); URINE KETONE NEGATIVE (NEGATIVE); URINE LEUK ESTERASE 1+ (NEGATIVE); URINE NITRITE NEGATIVE (NEGATIVE); URINE PROTEIN TRACE (NEGATIVE); URINE RBC 2 /hpf (0-4); URINE UROBILINOGEN 0.2 mg/dL (0.2-1.0); URINE WBC 14 /hpf (0-5)
[2019-01-28 12:28] LABS: BASO % 1.5 % (0-2.0); EOS % 1.7 % (0-4.5); HEMATOCRIT 31.8 % (32.4-45.2); HEMOGLOBIN 10.6 GM/dL (10.7-15.3); LYMPH % 18.1 % (8-40); MCH 28.9 pg (25.7-33.7); MCHC 33.2 g/dl (32.0-36.0); MEAN CELL VOLUME 86.9 fl (80-96); MEAN PLT VOLUME 8.9 fl (7.5-11.1); MONO % 5.7 % (3.8-10.2); PLATELET COUNT 332 K/MM3 (134-434); RBC 3.66 M/mm3 (3.60-5.2); RDW 15.4 % (11.6-15.6); WHITE BLOOD COUNT 8.4 K/mm3 (4.0-10.0)
[2019-01-28] MEDS ORDERED: ACETAMINOPHEN INJECTION 100 ML IVPB ONE (12:41)
[2019-01-28 12:43] LABS: INR 0.97 (0.83-1.09); PROTHROMBIN TIME (PATIENT) 11.5 SEC (9.7-13.0)
[2019-01-28 12:59] LABS: ALBUMIN 2.8 g/dl (3.4-5.0); ALK PHOS 183 U/L (45-117); ANION GAP 9 MMOL/L (8-16); BILIRUBIN,TOTAL 0.3 mg/dL (0.2-1); BLOOD UREA NITROGEN 7.9 mg/dL (7-18); CALCIUM 9.9 mg/dL (8.5-10.1); CHLORIDE 107 mmol/L (98-107); CO2 26 mmol/L (21-32); CREATININE 0.5 mg/dL (0.55-1.3); GLUCOSE,RANDOM 115 mg/dL (74-106); N-TERMINAL BNP 154.5 pg/ml (5-125); PHOSPHOROUS 4.1 mg/dL (2.5-4.9); POTASSIUM 4.2 mmol/L (3.5-5.1); SGOT/AST 38 U/L (15-37); SGPT/ALT 51 U/L (13-61); SODIUM 141 mmol/L (136-145); TOT PROT 6.9 g/dl (6.4-8.2)
[2019-01-28 14:27] VITALS: TEMP 98.7
[2019-01-28 15:04] VITALS: BP 147/84
[2019-01-28] MEDS ORDERED: LABETALOL HCL 100 MG TABLET (FP) ONE (15:26)
--- NOTE | 2019-01-28 18:23 | EKG ---
Test Reason : Blood Pressure : / mmHG Vent. Rate : 089 BPM Atrial Rate : 089 BPM P-R Int : 176 ms QRS Dur : 082 ms QT Int : 364 ms P-R-T Axes : 064 -19 021 degrees QTc Int : 442 ms NORMAL SINUS RHYTHM POSSIBLE LEFT ATRIAL ENLARGEMENT LEFT VENTRICULAR HYPERTROPHY ABNORMAL ECG WHEN COMPARED WITH ECG OF 21-DEC-2018 03:48, NO SIGNIFICANT CHANGE WAS FOUND Confirmed by ANA BRANCH, TAVARES ([id number]) on 01/28/2019 6:22:34 PM Referred By: Confirmed By:TAVARES PEREZ MD
[2019-01-28] MEDS ORDERED: LABETALOL HCL 200 MG TABLET (FP) PO SCH (22:00)
== END 2019-01-28 16:36 | disposition home or self-care (01) ==
LOC: JER 10:11
PROC: 3E033NZ Introduction of Analgesics, Hypnotics, Sedatives into Peripheral Vein, Percutaneous Approach (ICD-10-PCS; principal; 2019-01-28)
DX: O90.89 Other complications of the puerperium, not elsewhere classified (principal); O11.5 Pre-existing hypertension with pre-eclampsia, complicating the puerperium; R51 Headache; O24.03 Pre-existing type 1 diabetes mellitus, in the puerperium; E10.9 Type 1 diabetes mellitus without complications; Z79.4 Long term (current) use of insulin; Z87.09 Personal history of other diseases of the respiratory system; O99.345 Other mental disorders complicating the puerperium; F53.0 Postpartum depression
CPT/HCPCS: 36415; 71275-TC; 80053; 81003; 82550; 83735; 83880; 84100; 84484; 85025; 85610; 86850; 86900; 86901; 87086; 93005; 93010; 96374; 99282-25; J0131

== ENCOUNTER 2019-04-16 14:10 | Emergency (ER) | payer OTHER ==
[2019-04-16 14:19] VITALS: BMI 35.4
--- NOTE | 2019-04-16 14:20 | PDOC ---
Rapid Medical Evaluation Chief Complaint: Pain Time Seen by Provider: 04/16/19 14:15 Medical Evaluation: Allergies Allergy/AdvReac Type Severity Reaction Status Date / Time amoxicillin Allergy Intermediate Rash Verified 01/23/19 07:01 04/16/19 14:17 I have performed a brief in-person evaluation of this patient. The patient presents with a chief complaint of: h/o DM, cholecystectomy, Asthma present with complains of 1 week h/o epigastric pain and nausea. Denies vomiting , diarrhea, constipation. LMP Pertinent physical exam findings: A&O x 3 in NAD I have ordered the following: UA, HCG,Ucx. cbc,cmp,lipase The patient will proceed to the ED for further evaluation. Discharge Disposition - Diagnosis Nausea Abdominal pain Qualifiers: Abdominal location: epigastric Qualified Code(s): R10.13 - Epigastric pain - Discharge Dispostion Condition at time of disposition: Stable - Referrals - Patient Instructions - Post Discharge Activity
[2019-04-16] MEDS ORDERED: MAG HYDROX/AL HYDROX/SIMETH 30 ML UNIT-DOSE CUP PO ONE (14:28)
[2019-04-16] MEDS ORDERED: MAG HYDROX/ALH/SMC/DPHA/LIDO 240 ML MOUTHWASH MM ONE (14:28)
[2019-04-16] MEDS ORDERED: FAMOTIDINE 20 MG/50 ML IVPB 20 MG/50 ML MG IVPB ONE ×2 (14:28→15:11)
[2019-04-16] MEDS ORDERED: SODIUM CHLORIDE 1,000 ML IV STA (14:29)
--- NOTE | 2019-04-16 14:29 | PDOC ---
History of Present Illness - General Chief Complaint: Pain Stated Complaint: ABN PAIN Time Seen by Provider: 04/16/19 14:15 History Source: Patient - History of Present Illness Timing/Duration: reports: constant Abdominal Pain Onset Location: reports: epigastric Past History - Past Medical History Allergies/Adverse Reactions: Allergies Allergy/AdvReac Type Severity Reaction Status Date / Time amoxicillin Allergy Intermediate Rash Verified 04/16/19 14:19 Home Medications: Ambulatory Orders Albuterol Sulfate Inhaler - [Ventolin HFA Inhaler -] 1 - 2 inh PO Q4H PRN Vitamins (Sjr) - 1 tab PO DAILY 12/18/18 Insulin Glargine,Hum.rec.anlog [Basaglar Kwikpen U-100] 34 unit SQ HS 12/21/18 Acetaminophen [Tylenol .Regular Strength -] 500 mg PO Q4H PRN #30 tablet Ferrous Sulfate [Feosol] 325 mg PO DAILY #30 tab 01/24/19 Ibuprofen 600 mg PO Q6H PRN #30 tablet 01/24/19 Ibuprofen [Motrin -] 600 mg PO Q4H PRN tablet 01/24/19 Vitamins (Sjr) - 1 tab PO DAILY #30 tablet 01/24/19 Sennosides/Docusate Sodium [Pericolace -] 2 tablet PO HS PRN #30 tablet oxyCODONE HCL [Roxicodone -] 5 mg PO Q6H PRN #20 tablet MDD 20 mg 01/24/19 oxyCODONE HCL [Roxicodone -] 5 mg PO Q6H PRN #20 tablet MDD 20 mg 01/24/19 Labetalol HCl [Normodyne -] 200 mg PO BID 5 Days #10 tablet 01/28/19 Famotidine [Pepcid] 20 mg PO BID #14 tablet 04/16/19 Mag Hydrox/Al Hydrox/Simeth [Mylanta Suspension -] 30 ml PO Q6H #1 bottle Ondansetron HCl [Zofran] 4 mg PO Q8H #12 tablet 04/16/19 Asthma: Yes (Last attack 10 months ago) Cancer: No Cardiac Disorders: No COPD: No Diabetes: Yes (Dx IDDM 2012) HTN: No Seizures: No Thyroid Disease: No - Surgical History Cholecystectomy: Yes - Reproductive History (#): 5 Para: 1 - Immunization History Immunization Up to Date: Yes - Psycho Social/Smoking Cessation Hx Smoking History: Former smoker Have you smoked in the past 12 months: No If you are a former smoker, when did you quit?: 1.5 years Information on smoking cessation initiated: No Hx Alcohol Use: No Drug/Substance Use Hx: No Substance Use Type: None Hx Substance Use Treatment: No Review of Systems - Review of Systems Constitutional: No: Chills, Fever Respiratory: No: Shortness of Breath Cardiac (ROS): No: Chest Pain ABD/GI: Yes: Nausea. No: Blood Streaked Bowels, Constipated, Diarrhea, Rectal Bleeding, Vomiting : No: Burning, Dysuria, Discharge, Flank Pain, Hematuria Musculoskeletal: No: Back Pain *Physical Exam - Vital Signs Last Vital Signs Temp Pulse Resp BP Pulse Ox 98.0 F 71 17 116/63 100 04/16/19 14:16 04/16/19 14:16 04/16/19 14:16 04/16/19 14:16 04/16/19 14:16 - Physical Exam General Appearance: Yes: Appropriately Dressed. No: Apparent Distress HEENT: positive: Normal Voice Neck: positive: Supple Respiratory/Chest: positive: Lungs Clear, Normal Breath Sounds. negative: Respiratory Distress Cardiovascular: positive: Regular Rate, S1, S2 Gastrointestinal/Abdominal: positive: Normal Bowel Sounds, Tender (to epigatrium only), Soft. negative: Distended, Guarding, Rebound Musculoskeletal: negative: CVA Tenderness Integumentary: positive: Dry, Warm Neurologic: positive: Fully Oriented, Alert, Normal Mood/Affect ED Treatment Course - LABORATORY CBC & Chemistry Diagram: 04/16/19 15:30 04/16/19 15:30 Medical Decision Making - Medical Decision Making 04/16/19 14:26 [place] 8-year-old female history of NIDDM, asthma, s/p remote marc, GERD, not on daily meds, here with epigastric pain with nausea x1 week worse when eating fried food. No vomiting, change in bowel movements, melena, bright red blood per rectum, dysuria fever or chills. Patient states current sxs feels like her GERD see exam Epigastric pain Recurrent Endorses h/o GERD No GI f/u or scope on past Stable and in NAD w/ ttp to epigastrium, s/p marc remotely -GI cocktail -labs -reassess 04/16/19 16:14 Labs unremarkable for blood glucose of 279, no gap. On reassessment, patient states symptoms has proved with meds but does have some nausea. Will continue to mange sxs but anticipate discharge with meds and GI referral 04/16/19 17:09 Reports feeling better at this time and was able to tolerate p.o. Will dc with meds and GI referral. Patient also to follow-up with PMD for better management of her diabetes as discussed with patient Discharge - Discharge Information Problems reviewed: Yes Clinical Impression/Diagnosis: Nausea, Hyperglycemia Abdominal pain Qualifiers: Abdominal location: epigastric Qualified Code(s): R10.13 - Epigastric pain Condition: Improved Disposition: HOME - Additional Discharge Information Prescriptions: Famotidine [Pepcid] 20 mg PO BID #14 tablet Mag Hydrox/Al Hydrox/Simeth [Mylanta Suspension -] 30 ml PO Q6H #1 bottle Ondansetron HCl [Zofran] 4 mg PO Q8H #12 tablet - Follow up/Referral Referrals: Evelyn Newman [Primary Care Provider] - Anil Holbrook MD [Staff Physician] - - Patient Discharge Instructions Patient Printed Discharge Instructions: DI for Gastroesophageal Reflux Disease (GERD), GERD Diet Additional Instructions: Please take medications as prescribed and make an appointment with Dr. Holbrook of GI for further evaluation and possible endoscopy Your labs reveal that your sugar was 279. Please take your medications and follow-up with your PMD for better management of your diabetes - Post Discharge Activity
[2019-04-16] MEDS ORDERED: ONDANSETRON 4 MG/2 ML VIAL ONE (15:11)
[2019-04-16 15:17] LABS: EPI CELLS 2.6 /HPF (0-5/HPF); HYALINE CASTS 1 /lpf (0-8); PH,URINE 5.5 (5.0-8.0); URINE APPEARANCE CLEAR; URINE BACTERIA 35.6 /hpf (NEGATIVE); URINE BILIRUBIN NEGATIVE (NEGATIVE); URINE COLOR YELLOW; URINE GLUCOSE (UA) 3+ (NEGATIVE); URINE KETONE NEGATIVE (NEGATIVE); URINE LEUK ESTERASE NEGATIVE (NEGATIVE); URINE NITRITE NEGATIVE (NEGATIVE); URINE PROTEIN 1+ (NEGATIVE); URINE RBC 1 /hpf (0-4); URINE UROBILINOGEN 0.2 mg/dL (0.2-1.0); URINE WBC 2 /hpf (0-5)
[2019-04-16 15:46] LABS: EOS % 0.3 % (0-4.5); HEMATOCRIT 39.3 % (32.4-45.2); HEMOGLOBIN 12.9 GM/dL (10.7-15.3); LYMPH % 26.3 % (8-40); MEAN CELL VOLUME 84.9 fl (80-96); MEAN PLT VOLUME 10.4 fl (7.5-11.1); MONO % 5.1 % (3.8-10.2); NEUT % 67.3 % (42.8-82.8); PLATELET COUNT 241 K/MM3 (134-434); RBC 4.62 M/mm3 (3.60-5.2); RDW 15.1 % (11.6-15.6); WHITE BLOOD COUNT 7.2 K/mm3 (4.0-10.0)
[2019-04-16 16:10] LABS: ALBUMIN 3.4 g/dl (3.4-5.0); BILIRUBIN,TOTAL 0.2 mg/dL (0.2-1); BLOOD UREA NITROGEN 7.8 mg/dL (7-18); CALCIUM 9.3 mg/dL (8.5-10.1); CREATININE 0.7 mg/dL (0.55-1.3); POTASSIUM 4.4 mmol/L (3.5-5.1); TOT PROT 7.3 g/dl (6.4-8.2)
[2019-04-16] MEDS ORDERED: ONDANSETRON 4 MG/2 ML VIAL IVPUSH ONE (16:13)
[2019-04-16] MEDS ORDERED: ACETAMINOPHEN 1000 MG/100 ML VIAL (NON FORMULARY) IVPB ONE (16:13)
[2019-04-16] MEDS ORDERED: ACETAMINOPHEN INJECTION 100 ML IVPB ONE (16:45)
[2019-04-16 17:43] VITALS: BP 138/75; PULSE 80; TEMP 98.1
== END 2019-04-16 17:15 | disposition home or self-care (01) ==
LOC: JER 14:10
PROC: 3E033GC Introduction of Other Therapeutic Substance into Peripheral Vein, Percutaneous Approach (ICD-10-PCS; principal; 2019-04-16)
PROC: 3E033NZ Introduction of Analgesics, Hypnotics, Sedatives into Peripheral Vein, Percutaneous Approach (ICD-10-PCS; 2019-04-16)
PROC: 3E033GC Introduction of Other Therapeutic Substance into Peripheral Vein, Percutaneous Approach (ICD-10-PCS; 2019-04-16)
DX: R10.13 Epigastric pain (principal); E10.65 Type 1 diabetes mellitus with hyperglycemia; Z79.4 Long term (current) use of insulin; J45.909 Unspecified asthma, uncomplicated; Z88.0 Allergy status to penicillin; Z90.49 Acquired absence of other specified parts of digestive tract; Z87.891 Personal history of nicotine dependence
CPT/HCPCS: 36415; 80053; 81003; 83690; 84703; 85025; 99282-25; J0131; J7030

== ENCOUNTER 2020-05-12 04:43 | Day surgery (SDC) | payer OTHER ==
[2020-05-07 15:35] VITALS: BMI 37.2
[2020-05-12 10:31] VITALS: TEMP 98.1
[2020-05-12 12:09] VITALS: BP 129/77; PULSE 84
== END 2020-05-12 12:00 | disposition home or self-care (01) ==
LOC: JASU-ENDO 04:43
PROVIDERS: ATTEND Internal Medicine Gastroenterology
PROC: 0DB68ZX Excision of Stomach, Via Natural or Artificial Opening Endoscopic, Diagnostic (ICD-10-PCS; principal; 2020-05-12 11:00)
DX: K29.50 Unspecified chronic gastritis without bleeding (principal)
CPT/HCPCS: 81025; 88305-TC; 88342-TC

== ENCOUNTER 2023-01-05 18:29 | Emergency (ER) | payer OTHER ==
[2023-01-05 18:35] VITALS: BP 109/70; PULSE 80; RESP 20; TEMP 98.3; BMI 24.7
[2023-01-05] MEDS ORDERED: SODIUM CHLORIDE 0.9% 500 ML INFUS.BAG IV ONE (19:33)
[2023-01-05] MEDS ORDERED: METOCLOPRAMIDE HCL INJECTION 10 MG/2 ML VIAL IVPUSH ONE (19:33)
[2023-01-05] MEDS ORDERED: ACETAMINOPHEN 1000 MG/100 ML BAG IVPB ONE (19:34)
[2023-01-05] MEDS ORDERED: ACETAMINOPHEN INJECTION 100 ML IVPB ONE (19:53)
[2023-01-05] MEDS ORDERED: METOCLOPRAMIDE HCL INJECTION 10 MG/2 ML VIAL ONE (19:53)
[2023-01-05 20:01] LABS: BASO % 0.9 % (0-2.0); EOS % 0.7 % (0-4.5); HEMATOCRIT 38.8 % (32.4-45.2); HEMOGLOBIN 13.1 GM/dL (10.7-15.3); LYMPH % 32.6 % (8-40); MCHC 33.7 g/dl (32.0-36.0); MEAN CELL VOLUME 86.1 fl (80-96); MEAN PLT VOLUME 8.1 fl (7.5-11.1); MONO % 5.2 % (3.8-10.2); NEUT % 60.6 % (42.8-82.8); PLATELET COUNT 277 10^3/uL (134-434); RDW 15.3 % (11.6-15.6)
[2023-01-05 20:20] LABS: POTASSIUM 5.2 mmol/L (3.5-5.1)
[2023-01-05 20:22] LABS: BLOOD UREA NITROGEN 6.5 mg/dL (7-18); CALCIUM 8.6 mg/dL (8.5-10.1)
[2023-01-05 20:23] LABS: ALBUMIN 3.9 g/dl (3.4-5.0); MAGNESIUM 1.9 mg/dL (1.8-2.4)
[2023-01-05 20:26] LABS: CREATININE 0.4 mg/dL (0.55-1.3); PHOSPHOROUS 3.5 mg/dL (2.5-4.9)
[2023-01-05 20:27] LABS: BILIRUBIN,TOTAL 0.2 mg/dL (0.2-1); TOT PROT 8.1 g/dl (6.4-8.2)
[2023-01-05 20:48] LABS: PH,URINE 5.5 (5.0-8.0); URINE APPEARANCE CLEAR; URINE BILIRUBIN NEGATIVE (NEGATIVE); URINE COLOR YELLOW; URINE GLUCOSE (UA) NEGATIVE (NEGATIVE); URINE KETONE TRACE (NEGATIVE); URINE LEUK ESTERASE NEGATIVE (NEGATIVE); URINE NITRITE NEGATIVE (NEGATIVE); URINE PROTEIN NEGATIVE (NEGATIVE); URINE UROBILINOGEN 0.2 mg/dL (0.2-1.0)
== END 2023-01-05 21:58 | disposition home or self-care (01) ==
LOC: JER 18:29
PROC: 3E033NZ Introduction of Analgesics, Hypnotics, Sedatives into Peripheral Vein, Percutaneous Approach (ICD-10-PCS; principal; 2023-01-05)
PROC: 3E033GC Introduction of Other Therapeutic Substance into Peripheral Vein, Percutaneous Approach (ICD-10-PCS; 2023-01-05)
DX: R51.9 Headache, unspecified (principal); J02.9 Acute pharyngitis, unspecified; R11.0 Nausea; J35.1 Hypertrophy of tonsils
CPT/HCPCS: 36415; 80053; 81003; 83735; 84100; 84703; 85025; 87086; 99284-25